=== PATIENT | female | born 1980 | race Caucasian/White ===

== ENCOUNTER → 2019-05-08 15:50 | Outpatient (CLI) | payer BC, SELFPAY ==
[2019-05-08 19:33] LABS: Hemoglobin A1C 9.3 % (0.0-7.0)
[2019-05-08 23:43] LABS: Alanine Aminotransferase 29 U/L (12-78); Albumin Level 4.2 gm/dL (3.4-5.0); Albumin/Globulin Ratio 1.3 (1.1-1.8); Alkaline Phosphatase 82 U/L (46-116); Anion Gap 19.8 mEq/L (5-15); Aspartate Amino Transferase 17 U/L (15-37); Bilirubin,Total 0.6 mg/dL (0.2-1.0); Blood Urea Nitrogen 6 mg/dL (7-18); Calcium 8.6 mg/dL (8.5-10.1); Carbon Dioxide 24 mmol/L (21.0-32.0); Chloride 98 mmol/L (98-107); Chol/HDL Ratio 5.5 (1-3.5); Cholesterol 238 mg/dL (140-200); Creatinine,Serum 0.57 mg/dL (0.55-1.02); Estimated Glomerular Filt Rate 118 ml/min (>60); GFR (African American) 143 ML/MIN (>60); Globulin 3.3 gm/dl (1.3-3.2); Glucose 321 mg/dL (74-106); HDL Cholesterol 43 mg/dL (29-89); LDL Cholesterol 123 mg/dL (0-130); Potassium 3.8 mmoL/L (3.5-5.1); Sodium 138 mmol/L (136-145); Total Protein,Serum 7.5 gm/dL (6.4-8.2); Triglycerides 362 mg/dL (30-200); VLDL Cholesterol 72 mg/dL (0-40)
== END ==
PROVIDERS: Visit Provider Nurse Practitioner Family
DX: Z00.00 Encounter for general adult medical examination without abnormal findings (principal); E11.9 Type 2 diabetes mellitus without complications; Z79.4 Long term (current) use of insulin; Z79.84 Long term (current) use of oral hypoglycemic drugs
CPT/HCPCS: 36415; 80053; 80061; 83036

== ENCOUNTER 2020-01-13 17:46 | Emergency (ER) | payer BC, SELFPAY ==
[2020-01-13 17:46] VITALS: BP 151/90; PULSE 98; RESP 20; TEMP 37.2; O2SAT 99; BMI 24.0
--- NOTE | 2020-01-13 18:05 | XR_ITS ---
PROCEDURE: XR CHEST 2V CLINICAL HISTORY: COUGH Smoker with cough and congestion COMPARISON: CXR CHEST(2 VIEWS-NOT PORTABLE) from 06/15/2017 FINDINGS: The cardiomediastinal silhouette and pulmonary vascularity are within normal limits. No lobar consolidation or collapse. There is some mild coarsening of the bronchovascular markings No acute bony abnormalities. IMPRESSION: Coarsened bronchovascular markings which may be seen with chronic bronchitis/smoking related lung disease otherwise negative Dictated by: Erick Cleaning MD 01/13/2020 19:19 Electronically signed by Eirck Cleaning MD in [place] 01/13/2020 19:19
--- NOTE | 2020-01-13 18:46 | HMH.EDUTC ---
[facility] [place] Clinical Impression: Left lower lobe pneumonia Qualifiers: Pneumonia type: due to unspecified organism Qualified Code(s): J18.9 - Pneumonia, unspecified organism Disposition: Home, Self-Care Condition on Discharge: Good Instructions: Pneumonia-Adult, DI for Pneumonia -- Adult Additional Instructions: Drink plenty of fluids. Take tylenol or ibuprofen for pain or fever. Take the medications as directed. Follow up with your regular doctor. GO TO THE ER FOR ANY WORSENING SYMPTOMS Prescriptions: Albuterol Sulfate [Albuterol Sulfate Hfa] 2 puffs IH Q6H #1 hfa.aer.ad Transmission Status: Received by [facility] predniSONE [Prednisone 20mg Tab] 20 mg PO BID 3 Days #6 tab Transmission Status: Received by [facility] Benzonatate [Tessalon Perle 100mg Cap] 100 mg PO TIDP PRN #30 cap PRN Reason: Cough Transmission Status: Received by [facility] Azithromycin [Z-Noah 250mg Tab*] 250 mg PO UD DOSE PK #6 tab Transmission Status: Received by [facility] Referrals: Adrian Quinonez MD [Primary Care Provider] - Forms: Work/School Release Time of Disposition: 18:51 Medical Decision Making - Medical Records Medical records reviewed: No: I reviewed the patient's medical records. - Chema Inquiry Pt receiving controlled substance: No Vital Signs: 01/13/20 17:46 01/13/20 18:59 Temperature 98.9 F 98.9 F Temperature Source Oral Oral Pulse Rate 98 H Pulse Rate [Radial] 98 H Respiratory Rate 20 20 Blood Pressure 151/90 H Blood Pressure [Right Arm] 151/90 H Blood Pressure Mean [Right Arm] 110 Blood Pressure Source Automatic Cuff Blood Pressure Source [Right Arm] Automatic Cuff Blood Pressure Position Sitting Blood Pressure Position [Right Arm] Sitting 02 Sat by Pulse Oximetry 99 Oxygen Delivery Method Room Air Room Air Orders (Tests/Meds): ED MEDICATIONS Discontinued Medications Generic Name Dose Route Start Last Admin Trade Name Freq PRN Reason Stop Dose Admin Ceftriaxone Sodium 1 gm 01/13/20 18:43 01/13/20 18:50 Rocephin 1gm Vial IM 01/13/20 18:44 1 gm ONCE ONE Administration Protocol Lidocaine HCl 0 ml 01/13/20 18:43 01/13/20 18:51 Lidocaine 1% 10ml Mdv IM 01/13/20 18:44 2.1 ml ONCE ONE Administration ORDERS Category Date Time Status SARS-CoV-2, ANDREE Stat Lab 01/13/20 18:20 Received - Radiology Data #1 Image(s): Chest Image Reviewed: Yes I reviewed the patient's radiology image Preliminary Findings: Abnormal PROCEDURE: XR CHEST 2V CLINICAL HISTORY: COUGH Smoker with cough and congestion COMPARISON: CXR CHEST(2 VIEWS-NOT PORTABLE) from 06/15/2017 FINDINGS: The cardiomediastinal silhouette and pulmonary vascularity are within normal limits. No lobar consolidation or collapse. There is some mild coarsening of the bronchovascular markings No acute bony abnormalities. IMPRESSION: Coarsened bronchovascular markings which may be seen with chronic bronchitis/smoking related lung disease otherwise negative Dictated by: Erick Cleaning MD 01/13/2020 19:19 Electronically signed by Erick Cleaning MD in [place] 01/13/2020 19:19 [facility] [place] - General Stated complaint: cough Time Seen by Provider: 01/13/20 17:50 Mode of Arrival: Ambulatory Source of Information: Patient Limitations: No Limitations Description of Symptoms (Recalled from Triage Doc. by RN): bad cough and ears hurt HEENT Symptoms (Recalled from RN notes): Yes Resp Symptoms (Recalled from RN notes): Yes Skin Symptoms (Recalled from RN notes): No MS Symptoms (Recalled from RN notes): No Functional Status (Recalled from RN notes): wnl - History of Present Illness Provider Complaint: She c/o cough and congestion for the past 4 days. She denies any documented fever, but she has had some chilling at times. - Related Data Home Medications Medication Instructions Recorded Confirmed metformin 50
[2020-01-13 18:59] VITALS: BP 151/90; PULSE 98; RESP 20; TEMP 37.2; O2SAT 99
[2020-01-16 07:07] LABS: Covid-19 Nasal PCR Sendout Lex NOT DETECTED
== END 2020-01-13 19:00 | disposition home or self-care (01) ==
PROVIDERS: Emergency Provider Nurse Practitioner Family; PCP Internal Medicine Adolescent Medicine
DX: J18.9 Pneumonia, unspecified organism (principal); E11.9 Type 2 diabetes mellitus without complications; F17.210 Nicotine dependence, cigarettes, uncomplicated; Z79.84 Long term (current) use of oral hypoglycemic drugs; Z79.4 Long term (current) use of insulin; Z88.0 Allergy status to penicillin; Z90.79 Acquired absence of other genital organ(s)
CPT/HCPCS: 71046; 96372; 99202; U0004

== ENCOUNTER 2020-06-18 17:48 | Emergency (ER) | payer BC, SELFPAY ==
[2020-06-18 18:10] VITALS: BP 134/83; PULSE 91; RESP 14; TEMP 37; O2SAT 97; BMI 22.4
--- NOTE | 2020-06-18 18:39 | HMH.EDUTC ---
[facility] [place] Clinical Impression: Exposure to COVID-19 virus Disposition: Home, Self-Care Condition on Discharge: Good Instructions: Preventing the Spread of Coronavirus Discharge Instructions Additional Instructions: Drink plenty of fluids. Take tylenol for pain or fever. Follow up with your regular doctor. GO TO THE ER FOR ANY WORSENING SYMPTOMS Referrals: Adrian Quinonez MD [Primary Care Provider] - Time of Disposition: 18:40 Medical Decision Making - Medical Records Medical records reviewed: No: I reviewed the patient's medical records. - Chema Inquiry Pt receiving controlled substance: No Vital Signs: 06/18/20 18:10 06/18/20 18:46 Temperature 98.6 F 98.6 F Temperature Source Oral Pulse Rate 91 H Pulse Rate [Right Brachial] 91 H Respiratory Rate 14 14 Blood Pressure 134/83 Blood Pressure [Right Arm] 134/83 Blood Pressure Mean [Right Arm] 100 Blood Pressure Source [Right Arm] Automatic Cuff Blood Pressure Position [Right Arm] Sitting 02 Sat by Pulse Oximetry 97 Oxygen Delivery Method Room Air Orders (Tests/Meds): ORDERS Category Date Time Status Covid-19 Nasal PCR Sendout Luis Routine Lab 06/18/20 18:00 Received [facility] [place]PI - General Stated complaint: covid exposure Time Seen by Provider: 06/18/20 18:25 Mode of Arrival: Ambulatory Source of Information: Patient Limitations: No Limitations Description of Symptoms (Recalled from Triage Doc. by RN): PATIENT REQUESTING COVID TEST D/T EXPOSURE; DENIES SYMPTOMS HEENT Symptoms (Recalled from RN notes): No Resp Symptoms (Recalled from RN notes): No Skin Symptoms (Recalled from RN notes): No MS Symptoms (Recalled from RN notes): No Functional Status (Recalled from RN notes): WNL - History of Present Illness Provider Complaint: She has been exposed to covid by a coworker. She denies any symptoms except having a head ache. - Related Data Home Medications Medication Instructions Recorded Confirmed metformin 500 mg tablet,extended PO 30 Days #120 01/23/18 04/15/19 release 24 hr insulin glargine 100 unit/mL 10 unit SQ DAILY 05/11/18 04/15/19 subcutaneous solution Previous Rx's Medication Instructions Recorded azithromycin 250 mg tablet 250 mg PO QDAY 5 Days #6 tab 04/15/19 Albuterol Sulfate [Albuterol 2 puffs IH Q6H #1 hfa.aer.ad 01/13/20 Sulfate Hfa] Azithromycin [Z-Noah 250mg Tab*] 250 mg PO UD DOSE PK #6 tab 01/13/20 Benzonatate [Tessalon Perle 100mg 100 mg PO TIDP PRN #30 cap 01/13/20 Cap] predniSONE [Prednisone 20mg 20 mg PO BID 3 Days #6 tab 01/13/20 Tab] Allergies Allergy/AdvReac Type Severity Reaction Status Date / Time Penicillins [PENICILLINS] Allergy Unknown Verified 04/15/19 17:57 - Worker's Comp Is this a Worker's Comp case?: No [facility] History - Hepatitis A Screen Drug use history?: No High risk sexual behaviors?: No History of sexually transmitted infection?: No Currently employed?: No Childcare worker?: No Do you have indoor plumbing?: Yes Do you have electricity?: Yes Attestation statement:: This patient has been screened for Hepatitis A risk factors. I have reviewed the patient's past medical history: Yes Medical History: Reports:: Cancer, Diabetes Mellitus Type 2 Other Surgeries: Yes: No Previous Surgery, Cancer Surgery, Hysterectomy-Total Amputation: No Fractures: No - Social History Smoking Status: Current every day smoker Tobacco Type: cigarettes # Packs/Day (cigarettes): 1 Alcohol Intake: never Alcohol Intake Frequency:: holidays/special occasions only Substance Use Type: denies use Occupational Status: other Housing: house Household Members: family Family Hx:: Heart Attack, Diabetes ROS Obtained: Yes All systems reviewed & no additional complaints - Constitutional Constitutional: Reports system reviewed and no additional complaints, except as docu - Eyes Eyes: Reports system reviewed and no additional complaints, except as docu -
[2020-06-18 18:46] VITALS: BP 134/83; PULSE 91; RESP 14; TEMP 37; O2SAT 97
[2020-06-20 14:41] LABS: Covid-19 Nasal PCR Sendout Lex NOT DETECTED
== END 2020-06-18 18:48 | disposition home or self-care (01) ==
PROVIDERS: Emergency Provider Nurse Practitioner Family; PCP Internal Medicine Adolescent Medicine
DX: Z20.828 Contact with and (suspected) exposure to other viral communicable diseases (principal); E11.9 Type 2 diabetes mellitus without complications; Z88.0 Allergy status to penicillin
CPT/HCPCS: 99201; U0004

== ENCOUNTER → 2020-07-18 07:32 | Outpatient (CLI) | payer BC, SELFPAY ==
[2020-07-18 08:01] LABS: Basophils # 0.2 K/mm3 (0-0.2); Basophils % 2.5 % (0.1-2.0); Eosinophils # 0.3 K/mm3 (0.0-0.4); Eosinophils % 4.3 % (0.1-12.0); Hematocrit 56.8 % (37.0-47.0); Lymphocytes # 2.8 K/mm3 (0.7-4.5); Lymphocytes % 38.7 % (10-50); Mean Corpuscular HGB Conc 35.1 g/dL (31.8-35.4); Mean Corpuscular Hemoglobin 30.5 pg (27.0-31.2); Mean Corpuscular Volume 86.7 fl (81-99); Mean Platelet Volume 8.6 fl (7.4-10.4); Monocytes # 0.6 K/mm3 (0.1-1.0); Monocytes % 8.6 % (1.7-9.3); Neutrophils # 3.3 K/mm3 (1.8-7.8); Neutrophils % 45.9 % (37.0-80.0); Platelet Count 319 K/mm3 (142-424); Red Blood Count 6.55 M/mm3 (4.20-5.40); Red Cell Distribution Width 13.3 % (11.5-17.5); White Blood Count 7.3 K/mm3 (4.8-10.8)
[2020-07-18 08:08] LABS: Microalbumin/Creatinine Ratio 27.1
[2020-07-18 08:47] LABS: Creatinine,Urine Random 184 mg/dL (Not Estab.)
[2020-07-18 09:38] LABS: Hemoglobin 19.9 g/dL (12.2-16.2)
[2020-07-18 09:42] LABS: Hemoglobin A1C 10.6 % (4.0-6.0)
[2020-07-18 10:02] LABS: Alanine Aminotransferase 20 U/L (12-78); Albumin/Globulin Ratio 1.6 (1.1-1.8); Alkaline Phosphatase 99 U/L (38-126); Anion Gap 15.2 mEq/L (5-15); Aspartate Amino Transferase 28 U/L (14-36); Bilirubin,Total 0.7 mg/dl (0.2-1.3); Blood Urea Nitrogen 10 mg/dl (7-17); Calcium 10.1 mg/dl (8.4-10.2); Carbon Dioxide 30 mmol/L (22.0-30.0); Chloride 98 mmol/L (98-107); Chol/HDL Ratio 4.6 (1-3.5); Cholesterol 272 mg/dl (140-200); Estimated Glomerular Filt Rate 111 ml/min (>60); GFR (African American) 134 ML/MIN (>60); Globulin 3.1 g/dL (1.3-3.2); Glucose 303 mg/dl (74-100); HDL Cholesterol 59 mg/dl (40-60); Potassium 4.2 mmoL/L (3.5-5.1); Sodium 139 mmol/L (136-145); Total Protein,Serum 8.1 g/dl (6.3-8.2); Triglycerides 181 mg/dl (30-150); VLDL Cholesterol 36 mg/dL (0-40)
[2020-07-18 10:13] LABS: Direct LDL Cholesterol 166.97 mg/dL (100-129)
[2020-07-18 10:51] LABS: Vitamin B12 504 pg/mL (239-931)
== END ==
PROVIDERS: Visit Provider Nurse Practitioner Family
DX: E11.8 Type 2 diabetes mellitus with unspecified complications (principal); R20.2 Paresthesia of skin; E55.9 Vitamin D deficiency, unspecified; Z79.4 Long term (current) use of insulin
CPT/HCPCS: 36415; 80053; 80061; 82043; 82306; 82570; 82607; 83036; 84443; 85025

== ENCOUNTER → 2020-11-16 17:22 | Outpatient (CLI) | payer BC, SELFPAY ==
--- NOTE | 2020-11-16 17:41 | XR_ITS ---
PROCEDURE: XR RIBS RT MIN 3V W CXR1V CLINICAL INDICATION: RIGHT SIDED CHEST WALL PAIN COMPARISON: CR CXR CHEST(2 VIEWS-NOT PORTABLE) from 06/15/2017 CR XR CHEST 2V from 01/13/2020 FINDINGS: There is minimal lateral angulation the lateral aspect of the right 4th rib. No displaced fractures are evident. Frontal view of the chest shows no acute finding. IMPRESSION: Minimal angulation of the right 4th rib laterally. This is nonspecific and could be related to a nondisplaced fracture either old or acute. No displaced rib fractures are evident. Dictated by: Erick Cleaning MD 11/17/2020 05:13 Erick Cleaning MD in [place] 11/17/2020 05:13
--- NOTE | 2020-11-16 17:41 | XR_ITS ---
PROCEDURE: XR CHEST 2V CLINICAL HISTORY: SHORTNESS OF BREATH Cough, right-sided chest COMPARISON: CR CXR CHEST(2 VIEWS-NOT PORTABLE) from 06/15/2017 CR XR CHEST 2V from 01/13/2020 CR XR RIBS RT MIN 3V W CXR1V from 11/16/2020 FINDINGS: The cardiomediastinal silhouette and pulmonary vascularity are within normal limits. The lungs are clear without infiltrates, suspicious nodules, or pleural effusions. No acute bony abnormalities. IMPRESSION: No acute findings. Dictated by: Erick Cleaning MD 11/17/2020 05:10 Erick Cleaning MD in [place] 11/17/2020 05:10
[2020-11-16 18:08] LABS: Basophils # 0.1 K/mm3 (0-0.2); Basophils % 1.3 % (0.1-2.0); Eosinophils # 0.2 K/mm3 (0.0-0.4); Eosinophils % 2.3 % (0.1-12.0); Hematocrit 46.6 % (37.0-47.0); Hemoglobin 16.1 g/dL (12.2-16.2); Lymphocytes % 31.7 % (10-50); Mean Corpuscular HGB Conc 34.5 g/dL (31.8-35.4); Mean Corpuscular Hemoglobin 30.2 pg (27.0-31.2); Mean Corpuscular Volume 87.4 fl (81-99); Mean Platelet Volume 8.3 fl (7.4-10.4); Monocytes # 0.9 K/mm3 (0.1-1.0); Monocytes % 9.1 % (1.7-9.3); Neutrophils # 5.2 K/mm3 (1.8-7.8); Neutrophils % 55.6 % (37.0-80.0); Platelet Count 232 K/mm3 (142-424); Red Blood Count 5.34 M/mm3 (4.20-5.40); White Blood Count 9.4 K/mm3 (4.8-10.8)
[2020-11-16 18:25] LABS: D-Dimer 0.53 ug/mL (0.0-0.5)
[2020-11-16 18:40] LABS: Alanine Aminotransferase 20 U/L (12-78); Albumin Level 4.6 g/dl (3.5-5.0); Albumin/Globulin Ratio 1.8 (1.1-1.8); Alkaline Phosphatase 75 U/L (38-126); Anion Gap 12.4 mEq/L (5-15); Aspartate Amino Transferase 22 U/L (14-36); Bilirubin,Total 0.7 mg/dl (0.2-1.3); Blood Urea Nitrogen 12 mg/dl (7-17); Calcium 9.5 mg/dl (8.4-10.2); Carbon Dioxide 32 mmol/L (22.0-30.0); Chloride 100 mmol/L (98-107); Estimated Glomerular Filt Rate 110 ml/min (>60); GFR (African American) 133 ML/MIN (>60); Globulin 2.5 g/dL (1.3-3.2); Glucose 239 mg/dl (74-100); Potassium 4.4 mmoL/L (3.5-5.1); Sodium 140 mmol/L (136-145); Total Protein,Serum 7.1 g/dl (6.3-8.2); Uric Acid 3.5 mg/dl (2.5-6.2)
[2020-11-16 19:34] LABS: Erythrocyte Sedimentation Rate 13 mm/hr (0-20)
== END ==
PROVIDERS: Visit Provider Nurse Practitioner Family
DX: R07.89 Other chest pain (principal); R06.02 Shortness of breath; R05 Cough; M25.471 Effusion, right ankle
CPT/HCPCS: 36415; 71046; 71101; 80053; 84550; 85025; 85378; 85651

== ENCOUNTER → 2020-12-29 17:41 | Outpatient (CLI) | payer BC, SELFPAY ==
--- NOTE | 2020-12-29 17:58 | XR_ITS ---
PROCEDURE: XR ANKLE WT BEARING RT MIN 3V CLINICAL INDICATION: pain COMPARISON: No exams were available for comparison FINDINGS: Bones: No fracture or dislocation. No lytic or blastic change. There is normal mineralization. Joints: The joint spaces are well-preserved. No significant degenerative/arthritic changes. No erosive changes evident. Other findings:There is focal soft tissue swelling at the lateral malleolar region. A faint 2 mm opacity is present at this area within the soft tissues laterally in the subcutaneous or cutaneous region. IMPRESSION: Small foreign body with focal soft tissue swelling at the lateral malleolar region either upon the skin or in the subcutaneous area otherwise negative Dictated by: Erick Cleaning MD 12/30/2020 07:40 Erick Cleaning MD in [place] 12/30/2020 07:40
--- NOTE | 2020-12-29 17:58 | XR_ITS ---
PROCEDURE: XR FOOT WT BEARING RT 3V CLINICAL INDICATION: pain COMPARISON: No exams were available for comparison FINDINGS: No fracture or dislocation. No lytic or blastic change. There is normal mineralization. The joint spaces are well-preserved. No significant degenerative/arthritic changes. No erosive changes evident. Other findings:Borderline pes planus. Small calcaneal spur IMPRESSION: Borderline pes planus otherwise negative Dictated by: Erick Cleaning MD 12/30/2020 07:42 Erick Cleaning MD in [place] 12/30/2020 07:42
--- NOTE | 2020-12-29 17:58 | XR_ITS ---
PROCEDURE: XR ANKLE WT BEARING LT MIN 3V CLINICAL INDICATION: pain COMPARISON: No exams were available for comparison FINDINGS: Bones: No fracture or dislocation. No lytic or blastic change. There is normal mineralization. Joints: The joint spaces are well-preserved. No significant degenerative/arthritic changes. No erosive changes evident. Other findings:There are 3 small calcific densities in the pretibial region distally consistent with phleboliths. IMPRESSION: No acute findings. Dictated by: Erick Cleaning MD 12/30/2020 07:41 Erick Cleaning MD in [place] 12/30/2020 07:41
--- NOTE | 2020-12-29 17:58 | XR_ITS ---
PROCEDURE: XR FOOT WT BEARING LT 3V CLINICAL INDICATION: pain COMPARISON: No exams were available for comparison FINDINGS: No fracture or dislocation. No lytic or blastic change. There is normal mineralization. The joint spaces are well-preserved. No significant degenerative/arthritic changes. No erosive changes evident. Other findings:Mild pes planus. Small calcaneal spur IMPRESSION: Mild pes planus otherwise negative Dictated by: Erick Cleaning MD 12/30/2020 07:38 Erick Cleaning MD in [place] 12/30/2020 07:38
== END ==
PROVIDERS: PCP Internal Medicine Adolescent Medicine; Visit Provider Nurse Practitioner
DX: E11.9 Type 2 diabetes mellitus without complications (principal); M25.572 Pain in left ankle and joints of left foot; M25.571 Pain in right ankle and joints of right foot; M25.473 Effusion, unspecified ankle; Z79.84 Long term (current) use of oral hypoglycemic drugs
CPT/HCPCS: 73610; 73630

== ENCOUNTER → 2021-01-26 15:34 | Outpatient (CLI) | payer BC, SELFPAY ==
--- NOTE | 2021-01-26 15:34 | US_ITS ---
PROCEDURE: US EXTREMITY RT LIMITED CLINICAL INDICATION: foreign body of lateral ankle, pain COMPARISON: No exams were available for comparison FINDINGS: Ultrasound is performed over an area of soft tissue swelling in the lateral aspect the ankle. There is focal soft tissue swelling with irregular areas of decreased echogenicity within the subcutaneous area of the right lateral ankle. This area measures 2.6 cm cephalad caudad, 2.6 cm transverse and is approximately 5 mm in thickness. There is fluid echogenicity in this region suggesting that this could be due to a developing abscess or focal phlegmonous changes. There was a persistent small 2.5 mm hyperechoic linear opacity in the immediate subcutaneous tissues superficial to the fluid collection possibly due to small foreign body such is a small splinter. IMPRESSION: Focal soft tissue swelling in the lateral right ankle demonstrates heterogeneous echogenicity with some fluid echogenicity and may be due to developing abscess or phlegmonous change with possible small foreign body in the immediate subcutaneous tissues. The heterogeneous area of echogenicity in the subcutaneous tissue could also be due to a hematoma or a complex bursa. Dictated by: Erick Cleaning MD 01/26/2021 16:24 Erick Cleaning MD in [place] 01/26/2021 16:24
== END ==
PROVIDERS: PCP Internal Medicine Adolescent Medicine; Visit Provider Podiatrist
DX: M25.571 Pain in right ankle and joints of right foot (principal); M79.5 Residual foreign body in soft tissue; R60.0 Localized edema
CPT/HCPCS: 76882

== ENCOUNTER → 2021-05-01 09:13 | Outpatient (CLI) | payer BC, SELFPAY ==
[2021-05-01 10:12] LABS: Alanine Aminotransferase 31 U/L (12-78); Albumin Level 4.1 g/dl (3.5-5.0); Albumin/Globulin Ratio 1.6 (1.1-1.8); Alkaline Phosphatase 65 U/L (38-126); Anion Gap 13.4 mEq/L (5-15); Aspartate Amino Transferase 32 U/L (14-36); Bilirubin,Total 0.6 mg/dl (0.2-1.3); Blood Urea Nitrogen 11 mg/dl (7-17); Calcium 9.9 mg/dl (8.4-10.2); Carbon Dioxide 29 mmol/L (22.0-30.0); Chloride 103 mmol/L (98-107); Chol/HDL Ratio 2.8 (1-3.5); Cholesterol 147 mg/dl (140-200); Estimated Glomerular Filt Rate 136 ml/min (>60); GFR (African American) 165 ML/MIN (>60); Globulin 2.6 g/dL (1.3-3.2); Glucose 168 mg/dl (74-100); HDL Cholesterol 53 mg/dl (40-60); Potassium 4.4 mmoL/L (3.5-5.1); Sodium 141 mmol/L (136-145); Total Protein,Serum 6.7 g/dl (6.3-8.2); Triglycerides 98 mg/dl (30-150); VLDL Cholesterol 20 mg/dL (0-40)
[2021-05-01 10:23] LABS: Direct LDL Cholesterol 75.14 mg/dL (100-129)
[2021-05-01 10:25] LABS: Hemoglobin A1C 9.6 % (4.0-6.0)
[2021-05-01 10:29] LABS: 25-OH Vitamin D, Total 39.1 ng/mL (30-100)
== END ==
PROVIDERS: Visit Provider Nurse Practitioner Family
DX: E11.8 Type 2 diabetes mellitus with unspecified complications (principal); E78.2 Mixed hyperlipidemia; E55.9 Vitamin D deficiency, unspecified; Z79.4 Long term (current) use of insulin
CPT/HCPCS: 36415; 80053; 80061; 82306; 83036

== ENCOUNTER 2021-07-27 09:02 | Emergency (ER) | payer BC, SELFPAY ==
[2021-07-27 09:05] VITALS: BP 104/74; PULSE 115; RESP 20; TEMP 36.9; O2SAT 98; BMI 24.1
--- NOTE | 2021-07-27 09:31 | HMH.EDUTC ---
[facility] [place] Clinical Impression: URI (upper respiratory infection) Qualifiers: URI type: unspecified URI Qualified Code(s): J06.9 - Acute upper respiratory infection, unspecified Disposition: Home, Self-Care Condition on Discharge: Good Instructions: Azithromycin, DI for COVID-19 (Suspected or Confirmed ), Preventing the Spread of Coronavirus Discharge Instructions Additional Instructions: *Monitor Temp, Over the counter Motrin or Tylenol as directed/as needed Tylenol every 4 hours and Motrin every 6 hours (as long as your family doctor has told you that you can take it) for fever or pain. and straight to ER if unable to lower temp less than 101.0 after medication given *Warm salt water gargles may help to soothe the throat *Throat Lozenges *Warm fluids like tea with honey may help to soothe the throat *Sleep elevated *Humidifier/Vaporizer *Flonase 2 sprays in each nostril daily but be aware that it may take 2-3 days before you notice improvement Follow up IMMEDIATELY for new or worsening symptoms or no Noticeable improvement over the next 48-72 hours. 911 for difficulty breathing or swallowing You were tested for today for COVID19 your test result should be back in the next 24-48 hours, you may check your COVID test results on the [facility] My Health Portal if you have trouble logging on you may call You was given a handout with instructions for Self Quarantine and Self isolation for while you wait on test results and what to do if they are positive If you are positive the Health Dept will be contacting you also Make sure to take your Vitamins Vit. C Vit D and Zinc if you can take them Prescriptions: Fluticasone Propionate [Flonase 50mcg nasal spray 16gm] 1 spr NS DAILY #1 each Transmission Status: Received by [facility] Azithromycin [Z-Noah 250mg Tab] 250 mg PO DIRECTED #6 tab Transmission Status: Received by [id number] Referrals: Adrian Quinonez MD [Primary Care Provider] - As needed Time of Disposition: 09:46 Medical Decision Making - Chema Inquiry Pt receiving controlled substance: No Chema was queried for this patient: No Vital Signs: 07/27/21 09:05 07/27/21 09:56 Temperature 98.5 F 98.5 F Temperature Source Oral Pulse Rate 115 H Pulse Rate [Right Brachial] 115 H Respiratory Rate 20 20 Blood Pressure 104/74 L Blood Pressure [Right Arm] 104/74 L Blood Pressure Mean [Right Arm] 84 Blood Pressure Source [Right Arm] Automatic Cuff Blood Pressure Position [Right Arm] Sitting 02 Sat by Pulse Oximetry 98 Oxygen Delivery Method Room Air Orders (Tests/Meds): ED MEDICATIONS Discontinued Medications Generic Name Dose Route Start Last Admin Trade Name Freq PRN Reason Stop Dose Admin Methylprednisolone Sodium Succinate 125 mg 07/27/21 09:48 07/27/21 09:54 Methylprednisolone Sod Succ 125mg Vial IM 07/27/21 09:49 125 mg ONCE ONE Administration [facility] [place] HPI - General Stated complaint: covid exposure, covid symptoms Time Seen by Provider: 07/27/21 09:31 Mode of Arrival: Ambulatory Source of Information: Patient Limitations: No Limitations Description of Symptoms (Recalled from Triage Doc. by RN): PATIENT C/O CONGESTION AND A HEAD COLD X 3 DAYS. TESTED POSITIVE AT WORK YESTERDAY HEENT Symptoms (Recalled from RN notes): Yes Resp Symptoms (Recalled from RN notes): No Skin Symptoms (Recalled from RN notes): No MS Symptoms (Recalled from RN notes): No Functional Status (Recalled from RN notes): WNL - History of Present Illness Provider Complaint: Patient states that she has been having sinus pain and pressure State that her tested positive for COVID yesterday States that she has been blowing yellowish green mucous from her nose and today the pressure in her sinuses was worse so she came in to get checked out - Related Data Home Medications Medication Instructions Recorded Confirmed metformin 500 mg tablet,extended 500 mg PO TID 30
[2021-07-27 09:56] VITALS: BP 104/74; PULSE 115; RESP 20; TEMP 36.9; O2SAT 98
== END 2021-07-27 10:10 | disposition home or self-care (01) ==
PROVIDERS: Emergency Provider Nurse Practitioner; PCP Internal Medicine Adolescent Medicine
DX: J06.9 Acute upper respiratory infection, unspecified (principal); Z20.822 Contact with and (suspected) exposure to COVID-19; E11.9 Type 2 diabetes mellitus without complications; F17.210 Nicotine dependence, cigarettes, uncomplicated
CPT/HCPCS: 96372; 99202; C9803; G0463; U0003; U0005

== ENCOUNTER 2021-08-02 07:51 | Outpatient (CLI) | payer BC, SELFPAY ==
[2021-08-02] VITALS (10 sets, daily range): BP systolic 98–126; BP diastolic 60–78; PULSE 56–78; RESP 18; TEMP 36.3–36.8; O2SAT 94–99
== END 2021-08-02 11:30 | disposition home or self-care (01) ==
LOC: COVID.OUT 07:52
PROVIDERS: PCP Internal Medicine Adolescent Medicine; Visit Provider Internal Medicine Adolescent Medicine
DX: U07.1 COVID-19 (principal); Z23 Encounter for immunization
CPT/HCPCS: 96365

== ENCOUNTER 2022-02-26 18:01 | Emergency (ER) | payer BC, SELFPAY ==
[2022-02-26 19:10] VITALS: BP 150/95; PULSE 97; RESP 18; TEMP 37.2; O2SAT 97; BMI 21.6
--- NOTE | 2022-02-26 19:18 | HMH.EDUTC ---
[facility] [place] Clinical Impression: Enlarged lymph node in neck, Strep sore throat Otitis media Qualifiers: Otitis media type: suppurative Chronicity: acute Laterality: left Recurrence: non-recurrent Spontaneous tympanic membrane rupture: without spontaneous rupture Qualified Code(s): H66.002 - Acute suppurative otitis media without spontaneous rupture of ear drum, left ear Disposition: Home, Self-Care Condition on Discharge: Good Instructions: DI for Strep Throat, Middle Ear Infection Additional Instructions: Start antibiotics today be sure to take it as ordered with the full length of time although you should start feeling better in 24-48 hours. Change toothbrush and toothpaste 24-48 hours after starting antibiotics Tylenol or Motrin as needed for fever or pain Encourage fluids, water, Gatorade, Powerade, try cold fluids, popsicles, ice cream will make it feel better You are contagious for 24 hours. Avoid kissing anyone, no eating or drinking after anyone. You are contagious. Follow-up the ER for new or worsening symptoms or no noticeable improvement over the next 24-48 hours. Follow-up with PCP this week. stop clindamycin Prescriptions: Azithromycin [Zithromax 250mg tab] 250 mg PO DIRECTED #6 tab Transmission Status: Pending to [facility] Referrals: Adrian Quinonez MD [Primary Care Provider] - Time of Disposition: 19:43 Medical Decision Making - Chema Inquiry Pt receiving controlled substance: No Vital Signs: 02/26/22 19:10 Temperature 98.9 F Temperature Source Oral Pulse Rate [Right Brachial] 97 H Respiratory Rate 18 Blood Pressure [Right Arm] 150/95 H Blood Pressure Mean [Right Arm] 113 Blood Pressure Source [Right Arm] Automatic Cuff Blood Pressure Position [Right Arm] Sitting 02 Sat by Pulse Oximetry 97 Oxygen Delivery Method Room Air [facility] [place] HPI - General Chief complaint: Urgent Treatment Center Stated complaint: diag ear inf 02/25, sore throat Time Seen by Provider: 02/26/22 19:18 Mode of Arrival: Ambulatory Source of Information: Patient Limitations: No Limitations Description of Symptoms (Recalled from Triage Doc. by RN): PATIENT C/O SWELLING TO NECK. SHE WAS SEEN IN A [facility] IN [place] YESTERDAY AND WAS TOLD TO GET CHECKED OUT IF SWELLING DID NOT GO DOWN HEENT Symptoms (Recalled from RN notes): Yes Resp Symptoms (Recalled from RN notes): No Skin Symptoms (Recalled from RN notes): No MS Symptoms (Recalled from RN notes): No Functional Status (Recalled from RN notes): WNL - History of Present Illness Provider Complaint: 41 yr old female presents for rt ear pain and enlarged lymph nodes. pt states she was seen in [place] yesterday and checked for strep,covid,mono,flu and all were neg. pt states was placed on clindamycin and today there is no improvement. no trouble swallowing or breathing just sore glands - Related Data Home Medications Medication Instructions Recorded Confirmed metformin 500 mg tablet,extended 500 mg PO TID 30 Days #120 01/23/18 07/27/21 release 24 hr Empagliflozin [Jardiance] 10 mg PO DAILY 07/27/21 07/27/21 Gabapentin [Neurontin 300mg 300 mg PO TID 07/27/21 07/27/21 capsule] Insulin Glargine,Hum.rec.anlog 36 units SQ DAILY 07/27/21 07/27/21 [Clover Liu] Previous Rx's Medication Instructions Recorded Azithromycin [Z-Noah 250mg Tab] 250 mg PO DIRECTED #6 tab 07/27/21 Fluticasone Propionate [Flonase 1 spr NS DAILY #1 each 07/27/21 50mcg nasal spray 16gm] Azithromycin [Zithromax 250mg 250 mg PO DIRECTED #6 tab 02/26/22 tab] Allergies Allergy/AdvReac Type Severity Reaction Status Date / Time Penicillins [PENICILLINS] Allergy Unknown Verified 01/12/21 08:42 - Worker's Comp Is this a Worker's Comp case?: No [facility] History - Hepatitis A Screen Attestation statement:: This patient has been screened for Hepatitis A risk factors. I have reviewed the patient's past medical history: Yes
[2022-02-26 19:41] LABS: UTC Strep Screen (Rapid) Positive (Negative)
[2022-02-26 19:44] VITALS: BP 150/95; PULSE 97; RESP 18; TEMP 37.2; O2SAT 97
== END 2022-02-26 19:49 | disposition home or self-care (01) ==
PROVIDERS: Emergency Provider Nurse Practitioner Family; PCP Internal Medicine Adolescent Medicine
DX: H66.002 Acute suppurative otitis media without spontaneous rupture of ear drum, left ear (principal); Z72.0 Tobacco use; R59.0 Localized enlarged lymph nodes; J02.0 Streptococcal pharyngitis; H92.01 Otalgia, right ear; F13.10 Sedative, hypnotic or anxiolytic abuse, uncomplicated; E11.9 Type 2 diabetes mellitus without complications; Z79.84 Long term (current) use of oral hypoglycemic drugs
CPT/HCPCS: 87880; 99212; G0463

== ENCOUNTER 2022-06-03 14:40 | Emergency (ER) | payer BC, SELFPAY ==
[2022-06-03 14:55] VITALS: BP 146/83; PULSE 96; RESP 16; TEMP 36.8; O2SAT 98; BMI 22.4
--- NOTE | 2022-06-03 15:09 | EXP.UTC ---
Discharge Plan Disposition Patient Disposition: Home, Self-Care Condition: Good Prescriptions Prescriptions: No Action metformin 500 mg tablet extended release 24 hr 500 mg PO TID 30 Days Qty: 120 gabapentin 300 MG capsule 300 mg PO TID empagliflozin 10 MG tablet 10 mg PO DAILY insulin glargine U-300 conc 300 UNIT/ML insulin pen 36 units SQ DAILY azithromycin 250 MG tablet 250 mg PO DIRECTED Qty: 6 0RF Rx Instructions: Take two (2) tablets on day #1, then one (1) tablet day #2 thru #5 fluticasone propionate 120 SPR/BOT bottle 1 spr NS DAILY Qty: 1 0RF Rx Instructions: one spray in each nostril daily azithromycin 250 MG tablet 250 mg PO DIRECTED Qty: 6 0RF Rx Instructions: Take two (2) tablets on day #1, then one (1) tablet day #2 thru #5 Referrals Follow up/Referrals: Adrian Quinonez MD [Primary Care Provider] - See instructions Activity Restrictions/Add. Instructions Additional Instructions/Restrictions: Make sure to monitor your Finger sticks Monitor your Blood pressure and if you continue to have problems follow up with your Family Doctor Straight to ER if any life threatening symptoms Return if needed Clinical Impressions Clinical Impression: Facial flushing Discharge ED Provider: Keesha [place] [facility] [place] General Stated complaint: diabetic, high blood pressure Mode of Arrival: Ambulatory Source of Information: Patient and Parent(s) Time Seen by Provider: 06/03/22 15:09 Description of Symptoms (Recalled from Triage Doc. by RN): pt comes in with c/o possible blood pressure problems. pt is a known diabetic, pt states she does not have bp issues normally. she states that she just doesnt feel right . pt has flushed cheeks, hot spot in mouth, and red eyes. pt states symptoms began today while she was at work HEENT Symptoms (Recalled from RN notes): No Resp Symptoms (Recalled from RN notes): No Skin Symptoms (Recalled from RN notes): No MS Symptoms (Recalled from RN notes): No Functional Status (Recalled from RN notes): n/a History of Present Illness Provider Complaint: Patient states that she was at work and her checks felt flush and felt like she had hot spots' on her cheeks States that she was worried she may be starting to have blood pressure problems and wanted to come get her blood pressure checked out States that she isnt having any headache or blurry vision States that she is a Diabetic and took her insulin this morning and didnt check her FSBS states that she just felt a little off like she may be getting sick or something and was around someone in a meeting the other day that had a sick child so she wanted to get tested for COVID too States that she does normally take insulin at night but she fell asleep and took it this morning and felt like her face was flush and cheeks red but no fever Related Data Home Medications Medication Instructions Recorded Confirmed metformin 500 mg tablet,extended 500 mg PO TID Diabetes 30 days 01/23/18 06/03/22 release 24 hr ##120 empagliflozin 10 mg tablet 10 mg PO DAILY Diabetes 07/27/21 06/03/22 gabapentin 300 mg capsule 300 mg PO TID . 07/27/21 06/03/22 insulin glargine U-300 conc 300 36 units SQ DAILY Diabetes 07/27/21 06/03/22 unit/mL (3 mL) subcutaneous pen Previous Rx's Medication Instructions Recorded azithromycin 250 mg tablet 250 mg PO DIRECTED #6 tabs 07/27/21 fluticasone propionate 50 1 spr NS DAILY #1 ea 07/27/21 mcg/actuation nasal spray,suspension azithromycin 250 mg tablet 250 mg PO DIRECTED #6 tabs 02/26/22 Allergies Allergy/AdvReac Type Severity Reaction Status Date / Time Penicillins [PENICILLINS] Allergy Unknown Verified 06/03/22 14:59 Worker's Comp Is this a Worker's Comp case?: No PFSH PFSH Social History Smoking Status: Current every day smoker tobacco type: cigarettes packs per day: 1 second hand
[2022-06-03 15:48] VITALS: BP 146/83; PULSE 96; RESP 16; TEMP 36.8
== END 2022-06-03 15:48 | disposition home or self-care (01) ==
PROVIDERS: Emergency Provider Nurse Practitioner; PCP Internal Medicine Adolescent Medicine
DX: R23.2 Flushing (principal); Z79.84 Long term (current) use of oral hypoglycemic drugs; Z79.4 Long term (current) use of insulin; Z88.0 Allergy status to penicillin; E11.9 Type 2 diabetes mellitus without complications
CPT/HCPCS: 99212; C9803; G0463; U0003; U0005

== ENCOUNTER → 2022-10-15 08:35 | Outpatient (CLI) | payer BC, SELFPAY ==
[2022-10-15 09:10] LABS: Basophils # 0.2 K/mm3 (0-0.2); Eosinophils # 0.3 K/mm3 (0.0-0.4); Monocytes # 0.6 K/mm3 (0.1-1.0)
[2022-10-15 09:15] LABS: Basophils % 3.1 % (0.1-2.0); Eosinophils % 3.9 % (0.1-12.0); Hematocrit 55.6 % (37.0-47.0); Lymphocytes # 2.4 K/mm3 (0.7-4.5); Lymphocytes % 33.4 % (10-50); Mean Corpuscular HGB Conc 33.8 g/dL (31.8-35.4); Mean Corpuscular Hemoglobin 30.3 pg (27.0-31.2); Mean Corpuscular Volume 89.7 fl (81-99); Mean Platelet Volume 8.4 fl (7.4-10.4); Monocytes % 8.7 % (1.7-9.3); Neutrophils # 3.7 K/mm3 (1.8-7.8); Neutrophils % 50.9 % (37.0-80.0); Platelet Count 294 K/mm3 (142-424); Red Cell Distribution Width 13.1 % (11.5-17.5); White Blood Count 7.3 K/mm3 (4.8-10.8)
[2022-10-15 09:16] LABS: Hemoglobin 18.8 g/dL (12.2-16.2)
[2022-10-15 09:23] LABS: Creatinine,Urine Random 52 mg/dL (Not Estab.); Hemoglobin A1C 8.9 % (4.0-6.0)
[2022-10-15 09:24] LABS: Chloride 102 mmol/L (98-107); Microalbumin/Creatinine Ratio 58.4
[2022-10-15 09:25] LABS: Potassium 4.4 mmoL/L (3.5-5.1); Sodium 142 mmol/L (136-145)
[2022-10-15 09:27] LABS: Alanine Aminotransferase 21 U/L (12-78); Anion Gap 12.4 mEq/L (5-15); Aspartate Amino Transferase 25 U/L (14-36); Bilirubin,Total 0.6 mg/dl (0.2-1.3); Blood Urea Nitrogen 15 mg/dl (7-17); Carbon Dioxide 32 mmol/L (22.0-30.0); Estimated Glomerular Filt Rate 110 ml/min (>60); GFR (African American) 133 ML/MIN (>60)
[2022-10-15 09:28] LABS: Albumin/Globulin Ratio 1.7 (1.1-1.8); Alkaline Phosphatase 88 U/L (38-126); Calcium 10.1 mg/dl (8.4-10.2); Chol/HDL Ratio 3.8 (1-3.5); Cholesterol 272 mg/dl (140-200); Glucose 138 mg/dl (74-100); HDL Cholesterol 72 mg/dl (40-60); Triglycerides 139 mg/dl (30-150); VLDL Cholesterol 28 mg/dL (0-40)
[2022-10-15 09:39] LABS: Direct LDL Cholesterol 164.41 mg/dL (100-129)
[2022-10-15 09:44] LABS: 25-OH Vitamin D, Total 33.2 ng/mL (30-100)
== END ==
PROVIDERS: PCP Nurse Practitioner Family; Visit Provider Nurse Practitioner Family
DX: E11.42 Type 2 diabetes mellitus with diabetic polyneuropathy (principal); E78.2 Mixed hyperlipidemia; E55.9 Vitamin D deficiency, unspecified; Z79.4 Long term (current) use of insulin
CPT/HCPCS: 36415; 80053; 80061; 82043; 82306; 82570; 83036; 85025

== ENCOUNTER → 2023-04-14 15:08 | Outpatient (CLI) | payer BC, SELFPAY ==
--- NOTE | 2023-04-14 15:14 | XR_ITS ---
FINAL REPORT CLINICAL HISTORY: CONSTIPATION COMPARISON: None FINDINGS: SINGLE VIEW ABDOMEN A single view of the abdomen was obtained. There is a nonobstructive bowel gas pattern. There are no abnormally dilated loops of small bowel. No abnormal calcifications are identified. A moderate to large amount of stool is present in the colon. IMPRESSION: Nonobstructive bowel gas pattern with a moderate to large stool burden. Reviewed, Interpreted and Dictated by Aleks Lee III, MD Transcribed by Sabiha Staton Authenticated and [facility]
== END ==
LOC: RAD 15:09
PROVIDERS: PCP Internal Medicine Adolescent Medicine; Visit Provider Physician Assistant
DX: K59.00 Constipation, unspecified (principal)
CPT/HCPCS: 74018

== ENCOUNTER → 2023-04-15 08:35 | Outpatient (CLI) | payer BC, SELFPAY ==
[2023-04-15 08:51] LABS: Basophils # 0.1 K/mm3 (0-0.2); Basophils % 1.4 % (0.1-2.0); Eosinophils # 0.3 K/mm3 (0.0-0.4); Eosinophils % 4.2 % (0.1-12.0); Hematocrit 52.3 % (37.0-47.0); Hemoglobin 17.3 g/dL (12.2-16.2); Lymphocytes # 2.4 K/mm3 (0.7-4.5); Lymphocytes % 32.9 % (10-50); Mean Corpuscular Hemoglobin 29.6 pg (27.0-31.2); Mean Corpuscular Volume 89.7 fl (81-99); Mean Platelet Volume 9.2 fl (7.4-10.4); Monocytes # 0.7 K/mm3 (0.1-1.0); Monocytes % 9.3 % (1.7-9.3); Neutrophils # 3.8 K/mm3 (1.8-7.8); Neutrophils % 52.1 % (37.0-80.0); Platelet Count 267 K/mm3 (142-424); Red Blood Count 5.83 M/mm3 (4.20-5.40); Red Cell Distribution Width 13.1 % (11.5-17.5); White Blood Count 7.3 K/mm3 (4.8-10.8)
[2023-04-15 09:21] LABS: Hemoglobin A1C 9.2 % (4.0-6.0)
[2023-04-15 12:05] LABS: Chloride 102 mmol/L (98-107); Potassium 4.3 mmoL/L (3.5-5.1); Sodium 140 mmol/L (136-145)
[2023-04-15 12:08] LABS: Alanine Aminotransferase 30 U/L (12-78); Albumin/Globulin Ratio 1.6 (1.1-1.8); Alkaline Phosphatase 85 U/L (38-126); Anion Gap 14.3 mEq/L (5-15); Aspartate Amino Transferase 24 U/L (14-36); Bilirubin,Total 0.5 mg/dl (0.2-1.3); Blood Urea Nitrogen 18 mg/dl (7-17); Calcium 9.5 mg/dl (8.4-10.2); Carbon Dioxide 28 mmol/L (22.0-30.0); Cholesterol 159 mg/dl (140-200); Estimated Glomerular Filt Rate 109 ml/min (>60); GFR (African American) 132 ML/MIN (>60); Globulin 2.5 g/dL (1.3-3.2); Glucose 245 mg/dl (74-100); HDL Cholesterol 53 mg/dl (40-60); Total Protein,Serum 6.5 g/dl (6.3-8.2); Triglycerides 90 mg/dl (30-150); VLDL Cholesterol 18 mg/dL (0-40)
[2023-04-15 12:40] LABS: Thyroid Stimulating Hormone 2.41 uIU/mL (0.465-4.68)
== END ==
PROVIDERS: PCP Internal Medicine Adolescent Medicine; Visit Provider Physician Assistant
DX: E11.69 Type 2 diabetes mellitus with other specified complication (principal); E78.5 Hyperlipidemia, unspecified; K59.00 Constipation, unspecified; Z79.4 Long term (current) use of insulin
CPT/HCPCS: 36415; 80053; 80061; 83036; 84443; 85025

== ENCOUNTER 2023-06-04 10:52 | Emergency (ER) | payer BC, SELFPAY ==
[2023-06-04 11:05] VITALS: BP 141/91; PULSE 91; RESP 19; TEMP 36.8; O2SAT 98; BMI 23.8
--- NOTE | 2023-06-04 11:15 | XR_ITS ---
PROCEDURE INFORMATION: Exam: XR Right Foot Exam date and time: 06/04/2023 11:13 AM Age: 42 years old Clinical indication: Swelling, leg or foot; Additional info: Pain and swelling TECHNIQUE: Imaging protocol: Radiologic exam of the right foot. Views: 3 or more views. COMPARISON: CR XR FOOT WT BEARING RT 3V 12/29/2020 5:59 PM FINDINGS: Bones/joints: Hallux valgus deformity noted.No definitive osseous erosive lesions. No visible fracture or dislocation. Soft tissues: There is soft tissue swelling overlying the medial 1st MTP joint. IMPRESSION: 1. There is soft tissue swelling overlying the medial 1st MTP joint. 2. No visible fracture or dislocation.
--- NOTE | 2023-06-04 11:18 | EXP.UTC ---
Discharge Plan Disposition Patient Disposition: Home, Self-Care Condition: Good Prescriptions Prescriptions: New levofloxacin 750 mg tablet 750 mg PO DAILY 7 Days Qty: 7 0RF clindamycin HCl 300 mg capsule 300 mg PO Q8H 10 Days Qty: 30 0RF fluconazole 150 mg tablet 150 mg PO ONCE 1 Days Qty: 1 0RF No Action metformin 500 mg tablet extended release 24 hr 500 mg PO TID 30 Days Qty: 120 montelukast 10 mg tablet 10 mg PO DAILY atorvastatin 40 mg tablet 40 mg PO DAILY empagliflozin 10 mg tablet 25 mg PO DAILY gabapentin 300 mg capsule 300 mg PO TID Referrals Follow up/Referrals: Hasmukh Lopez DPM [Physician] - See instructions Umu Hameed APRN [Nurse Practitioner] - See instructions Adrian Quinonez MD [Primary Care Provider] - See instructions Activity Restrictions/Add. Instructions Additional Instructions/Restrictions: Call Podiatry tomorrow for appointment as soon as possible Take medication as prescribed Eat some yogurt and take an over the counter Probiotic with the medication that will help with GI upset you may speak to your pharmacist of which one is safe to take with your current medications Return if needed Follow up with your Family Doctor Straight to ER if any worsening of swelling and/or redness or other signs of worsening infection Clinical Impressions Clinical Impression: Diabetic foot infection Stand Alone Forms Stand Alone Forms: Work/School Release Instructions Patient Instructions: DI for Diabetic Foot Ulcer, Clindamycin, Levofloxacin Discharge ED Provider: Keesha Richard [facility] General Stated complaint: right foot swelling, no accident Mode of Arrival: Ambulatory Source of Information: Patient Limitations: No Limitations Time Seen by Provider: 06/04/23 11:18 Description of Symptoms (Recalled from Triage Doc. by RN): Pt stated that right 2nd metarasal was swollen, but now that it spread. Underneath her toe it is blackened color. She just noticed this today. HEENT Symptoms (Recalled from RN notes): No Resp Symptoms (Recalled from RN notes): No Skin Symptoms (Recalled from RN notes): No MS Symptoms (Recalled from RN notes): Yes Functional Status (Recalled from RN notes): n/a History of Present Illness Provider Complaint: Patient states that she noticed on Monday that her right second toe was looking a little swollen and her toenail is lifted and she thinks another toenail is growing underneath it and today the toe was starting to look red States that she is a diabetic and knew she needed to get some antibiotics if she had an infection States that she is not sure if she may have hit or not since the feeling in her feet is not that good from the diabetes States that her blood sugar did run high but has been better the last little bit Related Data Home Medications Medication Instructions Recorded Confirmed metformin 500 mg tablet,extended 500 mg PO TID Diabetes 30 days 01/23/18 06/04/23 release 24 hr ##120 atorvastatin 40 mg tablet 40 mg PO DAILY 05/04/23 06/04/23 empagliflozin 10 mg tablet 25 mg PO DAILY Diabetes 05/04/23 06/04/23 montelukast 10 mg tablet 10 mg PO DAILY 05/04/23 06/04/23 gabapentin 300 mg capsule 300 mg PO TID 06/04/23 06/04/23 Previous Rx's Medication Instructions Recorded clindamycin HCl 300 mg capsule 300 mg PO Q8H 10 days #30 caps 06/04/23 fluconazole 150 mg tablet 150 mg PO ONCE 1 day #1 tab 06/04/23 levofloxacin 750 mg tablet 750 mg PO DAILY 7 days #7 tabs 06/04/23 Allergies Allergy/AdvReac Type Severity Reaction Status Date / Time Penicillins [PENICILLINS] Allergy Unknown Verified 06/04/23 11:15 Worker's Comp Is this a Worker's Comp case?: No [facility] Disclaimer: The information contained in this section may have been updated after the patient was seen, as this information can be updated by other users. Medical History (Updated 06/04/23 @ 12:03 by Keesha Richard APRN) Diabetes mariposa
[2023-06-04 12:13] VITALS: BP 141/91; PULSE 91; RESP 19; TEMP 36.8; O2SAT 98
== END 2023-06-04 12:13 | disposition home or self-care (01) ==
PROVIDERS: Emergency Provider Nurse Practitioner; PCP Internal Medicine Adolescent Medicine
DX: E11.621 Type 2 diabetes mellitus with foot ulcer (principal); L97.519 Non-pressure chronic ulcer of other part of right foot with unspecified severity; F17.210 Nicotine dependence, cigarettes, uncomplicated; Z79.84 Long term (current) use of oral hypoglycemic drugs
CPT/HCPCS: 73630; 99212; 99214; G0463

== ENCOUNTER 2023-08-04 08:14 | Day surgery (SDC) | payer BC, SELFPAY ==
[2023-08-04 08:38] VITALS: BP 129/74; PULSE 90; RESP 16; TEMP 36.8; O2SAT 98
[2023-08-04 08:43] VITALS: BP 129/74; PULSE 90; RESP 16; TEMP 36.8; O2SAT 98; BMI 22.9
[2023-08-04] MEDS: LACTATED RINGERS 1000ML 1,000 ML 25 ML IV (08:47)
--- NOTE | 2023-08-04 08:57 | P.PNANES_ITS ---
[facility] Disclaimer: The information contained in this section may have been updated after the patient was seen, as this information can be updated by other users. Medical History Diabetes mellitus Hx of ovarian cancer Port-A-Cath in place Surgical History H/O laparoscopy History of section History of hysterectomy Family History Other Family history of cancer Family history of diabetes mellitus type II Family history of myocardial infarction Social History Smoking Status: Current every day smoker tobacco type: cigarettes packs per day: 1 second hand exposure: Yes alcohol intake: never substance use type: denies use current occupational status: employed Travel in the last 8 weeks: None household members: family housing: house [facility] Anesthesia Checklist Patient Identification Patient Identification: Arm Band Structural Data Admitted From: Home Planned Operative Procedure/s: Colonoscopy Consent for Planned Operative Procedure(s) Verified: Yes Verified Documents: Surgical Consent and History and Physical NPO Status Verified Time NPO: 00:00 Additional verifications Anesthesia Reactions: No Airway Assessment Mallampati Score:: Class II C-Spine Mobility Assessed: Yes TMJ Mobility Assessed: Yes Dentition: Good Dentition Neurological Assessment Level of Consciousness: Awake and Alert Anesthesia Plan Anesthesia Risk discussed: Yes Anesthesia Plan: Verified ASA Class: II Anesthesia Type: MAC
--- NOTE | 2023-08-04 09:07 | EXP.GEN.HP ---
HPI HPI HPI: Patient is a 42-year-old female referred by Dr. Adrian Quinonez for colonoscopy to investigate constipation. She has a prior history of ovarian cancer at age 16. She is never had prior colonoscopy. She has had problems with bowel function for essentially her whole life . However over the past 4 months she has had some significant difficulty moving her bowels. She had initially tried [id number] regimen and has been prescribed multiple bowel regimen without significant results. She states that she even tried magnesium citrate and had 0 results. She was sent for surgical consultation for colonoscopy. [facility] Disclaimer: The information contained in this section may have been updated after the patient was seen, as this information can be updated by other users. Medical History (Updated 08/04/23 @ 09:07 by Aleks Batres MD) Diabetes mellitus Hx of ovarian cancer Port-A-Cath in place Surgical History H/O laparoscopy History of section History of hysterectomy Family History Family history of cancer Family history of diabetes mellitus type II Family history of myocardial infarction Social History Smoking Status: Current every day smoker tobacco type: cigarettes packs per day: 1 second hand exposure: Yes alcohol intake: never substance use type: denies use current occupational status: employed Travel in the last 8 weeks: None household members: family housing: house Meds Home Medications and Allergies Home Medications Medication Instructions Recorded Confirmed Type metformin 500 mg tablet,extended 500 mg PO BID Diabetes 30 days 01/23/18 08/04/23 History release 24 hr ##120 atorvastatin 40 mg tablet 40 mg PO DAILY 05/04/23 08/04/23 History empagliflozin 10 mg tablet 25 mg PO DAILY Diabetes 05/04/23 08/04/23 History montelukast 10 mg tablet 10 mg PO DAILY 05/04/23 08/04/23 History gabapentin 300 mg capsule 300 mg PO TID 06/04/23 08/04/23 History insulin glargine U-300 conc 300 38 unit SQ DAILY 08/02/23 08/04/23 History unit/mL (1.5 mL) subcutaneous pen (Toujeo SoloStar U-300 Insulin) New Prescriptions to Start Prescriptions: Allergies Allergy/AdvReac Type Severity Reaction Status Date / Time Penicillins [PENICILLINS] Allergy Unknown Verified 08/04/23 08:34 Exam Data for Last 24 hours Vital signs and Labs for Last 24 Hours: Temp Pulse Resp BP Pulse Ox O2 Del Method 98.2 F 90 16 129/74 98 Room Air 08/04/23 08:43 08/04/23 08:43 08/04/23 08:43 08/04/23 08:43 08/04/23 08:43 08/04/23 08:43 I & O for Last 24 hours: Intake & Output 08/01/23 08/02/23 08/03/23 08/04/23 11:59 11:59 11:59 11:59 Weight 138 lb Constitutional Constitutional: no acute distress *Routine HEENT Exam Head: Present normocephalic Eye: Present EOMI and PERRL ENT: Present mucous membranes moist *Routine Neck Exam Neck: Present supple; Absent lymphadenopathy *Routine Respiratory Exam Respiratory: Present CTA bilaterally *Routine Cardiovascular Exam Cardiovascular: Present RRR *Routine Abdominal Exam Abdominal: Present soft and normoactive bowel sounds; Absent tenderness *Routine Rectal Exam Rectal:: deferred *Routine Genitalia Exam Genitalia:: deferred *Routine Extremities Exam Extremities: Absent cyanosis, clubbing or edema *Routine Skin Exam Skin: Present warm; Absent rash *Routine Neurological Exam Neurological: Present alert and oriented X3 Assessment and Plan *Assessment and plan (1) Colonoscopy planned: Status: Acute Category: Medical Plan Plan for colonoscopy
[2023-08-04 09:09] LABS: POC Glucose,Bedside 101 (70-110)
[2023-08-04 09:22] VITALS: O2SAT 99
--- NOTE | 2023-08-04 09:59 | HMH.SCOPE ---
Procedure: Date: 08/04/23 Patient Date of :: 1980 Procedure Performed:: Colonoscopy to ileocecal valve with polypectomy using cold snare Indications:: Patient is a 42-year-old female referred by Dr. Adrian Quinonez for colonoscopy to investigate constipation. She has a prior history of ovarian cancer at age 16. She is never had prior colonoscopy. She has had problems with bowel function for essentially her whole life . However over the past 4 months she has had some significant difficulty moving her bowels. She had initially tried [id number] regimen and has been prescribed multiple bowel regimen without significant results. She states that she even tried magnesium citrate and had 0 results. She was sent for surgical consultation for colonoscopy. Performing Provider:: Aleks Batres MD Referring Provider:: Adrian Quinonez MD Sedation:: MAC sedation Procedure:: Patient history was obtained and appropriate physical examination was performed. Patient's medications and allergies were reviewed. Informed consent was obtained after explaining the benefits, alternatives, and risks of the procedure including, but not limited to, bleeding, perforation, missed lesions, and adverse reaction to anesthesia medications. Patient was transported to endoscopy procedure room. Patient was connected to monitoring devices. Throughout the procedure the patient's blood pressure, pulse, and oxygen saturations were monitored continuously. Patient identification and planned procedure were verified by the staff. Patient was positioned in lateral decubitus position. Digital anorectal exam was performed. Variable stiffness Olympus colonoscope was inserted and advanced under direct visualization to the cecum. Adequacy of the colonic preparation was noted. The colonoscope was advanced a short distance into the ileocecal valve. The colonoscope was then slowly withdrawn while carefully examining the color, texture, anatomy, and integrity of the mucosoa circumferentially. Within the rectum retroflexion was performed. Colonoscope was then withdrawn. . Advancement of the colonoscope to the cecum was somewhat difficult as she had a very redundant floppy sigmoid colon. Colonoscope was able to be only advanced to the ileocecal valve and not into the terminal ileum. Colonoscope was slowly withdrawn through the colon with careful surveillance. There was some floppiness, redundancy, and tortuosity of the sigmoid colon. There is a tiny polyp at the rectosigmoid removed with cold snare. Uncertain nature. Retroflexion revealed minimal internal hemorrhoids. Colonoscope was withdrawn. . Findings:: Tortuosity and redundancy of sigmoid colon Diminutive rectosigmoid polyp Recommendations:: No significant mechanical etiology for her constipation. Likely functional. Repeat colonoscopy pending pathology. Likely 3 to 5 years Complications:: None immediately apparent Estimated blood obtained (mL): 1 Colonoscopy Component Colonoscopy Component Was a colonoscopy performed during today's procedure?: Yes Recommended follow up colonoscopy of at least 10 years?: No If no, follow up colonoscopy recommended in ___ years?: 5 Reason for not recommending >/= 10 yr follow-up interval?: Polyp
[2023-08-04 10:00] VITALS: BP 128/69; PULSE 108; RESP 16; TEMP 36.8; O2SAT 100
[2023-08-04 10:10] VITALS: BP 123/92; PULSE 104; RESP 17; O2SAT 100
[2023-08-04 10:25] VITALS: BP 140/58; PULSE 100; RESP 18; O2SAT 99
== END 2023-08-04 10:31 | disposition home or self-care (01) ==
PROVIDERS: PCP Internal Medicine Adolescent Medicine; Visit Provider Surgery
PROC: 0DJD8ZZ Inspection of Lower Intestinal Tract, Via Natural or Artificial Opening Endoscopic (ICD-10-PCS; CPT 45385; principal; 2023-08-04 09:30)
DX: K59.00 Constipation, unspecified (principal); Z85.43 Personal history of malignant neoplasm of ovary; K56.2 Volvulus; K64.8 Other hemorrhoids; K63.5 Polyp of colon; E11.9 Type 2 diabetes mellitus without complications
CPT/HCPCS: 45385; 82962

== ENCOUNTER 2023-09-02 15:09 | Outpatient (CLI) | payer BC, SELFPAY ==
--- NOTE | 2023-09-02 15:16 | XR_ITS ---
PROCEDURE INFORMATION: Exam: XR Right Foot Complete; Alignment Exam date and time: 09/02/2023 3:18 PM Age: 42 years old Clinical indication: Other: Infection in second toe; Additional info: Foot pain TECHNIQUE: Imaging protocol: Radiologic exam of the right foot. Views: 3 or more views. COMPARISON: CR XR FOOT RT MIN 3V 06/04/2023 11:13 AM FINDINGS: Bones/joints: First metatarsal phalangeal joint bunion. Moderate plantar and moderate posterior calcaneal bone spurs. Soft tissues: Normal. IMPRESSION: 1. No acute findings. 2. First metatarsal phalangeal joint bunion. 3. Moderate plantar and moderate posterior calcaneal bone spurs.
== END 2023-09-02 23:59 ==
PROVIDERS: PCP Internal Medicine Adolescent Medicine; Visit Provider Nurse Practitioner
DX: M79.671 Pain in right foot (principal)
CPT/HCPCS: 73630

== ENCOUNTER 2023-09-03 14:26 | Emergency (ER) | payer BC, SELFPAY ==
[2023-09-03 14:27] VITALS: BP 124/85; PULSE 115; RESP 18; TEMP 36.7; O2SAT 94; BMI 22.6
--- NOTE | 2023-09-03 15:10 | EXP.UTC ---
Discharge Plan Disposition Patient Disposition: Home, Self-Care Condition: Good Prescriptions Prescriptions: New azithromycin [Zithromax] 250 mg tablet 250 mg PO UD DOSE PK Qty: 6 0RF Rx Instructions: Take two (2) tablets today, then one (1) tablet days #2 thru #5 methylprednisolone 4 mg Tablets,Dose Pack 4 mg PO DIRECTED 6 Days Qty: 21 0RF Rx Instructions: Take 1 pack as directed for 6 days yscslxeeiouwhty-meimgzfno-ET [Bromfed DM] 2-30-10 mg/5 mL Syrup 5 ml PO Q6H PRN (Reason: Cough) Qty: 240 0RF No Action montelukast 10 mg tablet 10 mg PO DAILY atorvastatin 40 mg tablet 40 mg PO DAILY empagliflozin 10 mg tablet 25 mg PO DAILY gabapentin 300 mg capsule 300 mg PO TID Referrals Follow up/Referrals: Adrian Quinonez MD [Primary Care Provider] - See instructions Activity Restrictions/Add. Instructions Additional Instructions/Restrictions: Drink plenty of fluids. Take tylenol or ibuprofen for pain or fever. Take the medications as directed. Follow up with your regular doctor. GO TO THE ER FOR ANY WORSENING SYMPTOMS Quarantine until you know the results of your covid-19 test. Notify your school or workplace of your results and follow their instructions regarding return to work/school. Clinical Impressions Clinical Impression: Sinusitis Instructions Patient Instructions: Sinusitis, DI for Sinusitis, Dexamethasone Injection [place]charge ED Provider[place]ro[place] [facility] [place] General Stated complaint: Cough Mode of Arrival: Ambulatory Source of Information: Patient Limitations: No Limitations Time Seen by Provider: 09/03/23 15:10 Description of Symptoms (Recalled from Triage Doc. by RN): Pt's symptoms are cough, and SEARS HEENT Symptoms (Recalled from RN notes): Yes Resp Symptoms (Recalled from RN notes): No Skin Symptoms (Recalled from RN notes): No MS Symptoms (Recalled from RN notes): No Functional Status (Recalled from RN notes): N/a History of Present Illness Provider Complaint: She states that for the past 3 weeks she has had worsening sinus congestion and ear pain. She denies any fever/chills. Related Data Home Medications Medication Instructions Recorded Confirmed atorvastatin 40 mg tablet 40 mg PO DAILY 05/04/23 09/03/23 empagliflozin 10 mg tablet 25 mg PO DAILY Diabetes 05/04/23 09/03/23 montelukast 10 mg tablet 10 mg PO DAILY 05/04/23 09/03/23 gabapentin 300 mg capsule 300 mg PO TID 06/04/23 09/03/23 Previous Rx's Medication Instructions Recorded azithromycin 250 mg tablet 250 mg PO UD DOSE PK #6 tabs 09/03/23 (Zithromax) egmmbnwkwvehbys-[id number] 5 ml PO Q6H PRN Cough #240 mL 09/03/23 2 mg-30 mg-10 mg/5 mL oral syrup (Bromfed DM) methylprednisolone 4 mg tablets in 4 mg PO DIRECTED 6 days #21 tabs 09/03/23 a dose pack Allergies Allergy/AdvReac Type Severity Reaction Status Date / Time Penicillins [PENICILLINS] Allergy Unknown Verified 09/03/23 15:09 Worker's Comp Is this a Worker's Comp case?: No [facility] Disclaimer: The information contained in this section may have been updated after the patient was seen, as this information can be updated by other users. Medical History Diabetes mellitus Hx of ovarian cancer Port-A-Cath in place Surgical History H/O laparoscopy History of section History of hysterectomy Family History Other Family history of cancer Family history of diabetes mellitus type II Family history of myocardial infarction Social History Smoking Status: Current every day smoker tobacco type: cigarettes packs per day: 1 second hand exposure: Yes alcohol intake: never substance use type: denies use current occupational status: employed Travel in the last 8 weeks: None household members: family housing: house ROS Obtained: Yes All systems reviewed & no additional complaints except as documented Constitutional Constitutional: Reports poor appetite Eyes Eyes: Reports system reviewed and no additional complaints, except as documented ENT Ears, Nose, Mouth, and Throat: Reports as per HPI Cardiovascular Cardiovascular: Reports system reviewed and no additional complaints, except as documented and Denies chest pain Respiratory Respiratory: Denies shortness of breath, Denies chest congestion, Reports cough, Denies stridor and Denies wheezing Gastrointestinal Gastrointestingal: Reports system reviewed and no additional complaints, except as documented; Denies abdominal pain, diarrhea or vomiting Musculoskeletal Musculoskeletal: Reports system reviewed and no additional complaints, except as documented and Denies arthralgias Integumentary/Breasts Skin/Breast: Reports system reviewed and no additional complaints, except as documented and Denies rash Neurologic Neurologic: Denies paresthesias Allergic/Immunologic Allergic/Immunologic: Denies wheezing Physical Exam General General appearance: alert and in no apparent distress Eye Eye exam: Present normal appearance, PERRL and EOMI ENT ENT exam: Present mucous membranes moist and normal external ear exam Expanded ENT Exam External ear exam: Present normal external inspection TM/Canal exam: Bilateral TM: erythema and bulging Nose exam: Absent sinus tenderness Nasal speculum exam: Bilateral: normal Mouth exam: Present normal external inspection; Absent drooling Teeth exam: Present normal inspection Throat exam: Present tonsillar erythema and tonsillomegaly Neck Neck exam: Present normal inspection, full ROM and trachea midline; Absent tenderness, lymphadenopathy or thyromegaly Chest Chest inspection: Present normal inspection and symmetric chest wall rise; Absent tenderness or rash Respiratory Respiratory exam: Present normal lung sounds bilaterally; Absent respiratory distress, wheezes, stridor or accessory muscle use Cardiovascular Cardiovascular exam: Present regular rate, normal rhythm and normal heart sounds Abdominal Exam Abdominal exam: Present soft; Absent distention, tenderness, guarding, rebound or rigidity Extremities Exam Extremities exam: Present normal inspection, full ROM and normal capillary refill; Absent tenderness or calf tenderness Back Exam Back exam: Present normal inspection and full ROM; Absent tenderness Neurological Exam Neurological exam: Present alert and oriented X3 Psychiatric Psychiatric exam: Present normal affect and normal mood Skin Skin exam: Present warm, dry, intact and normal color Lymphatic Lymphatic Findings: no adenopathy Medical Decision Making Medical Records Medical records reviewed: No I reviewed the patient's medical records. Chema Inquiry Pt receiving controlled substance: No Vital Signs: 09/03/23 14:27 Temperature 98.1 F Temperature Source Oral Pulse Rate [Right Radial] 115 H Respiratory Rate 18 Blood Pressure [Right Arm] 124/85 Blood Pressure Mean [Right Arm] 98 Blood Pressure Source [Right Arm] Automatic Cuff Blood Pressure Position [Right Arm] Sitting 02 Sat by Pulse Oximetry 94 L Oxygen Delivery Method Room Air
[2023-09-03] MEDS: DEXAMETHASONE 4MG/ML 1ML VIAL 8 MG IM (15:28)
[2023-09-03 15:54] VITALS: BP 124/85; PULSE 115; RESP 18; TEMP 36.7; O2SAT 94
== END 2023-09-03 15:54 | disposition home or self-care (01) ==
PROVIDERS: Emergency Provider Nurse Practitioner Family; PCP Internal Medicine Adolescent Medicine
DX: J01.90 Acute sinusitis, unspecified (principal); R05.9 Cough, unspecified; H92.03 Otalgia, bilateral; F17.210 Nicotine dependence, cigarettes, uncomplicated; E11.9 Type 2 diabetes mellitus without complications; Z79.84 Long term (current) use of oral hypoglycemic drugs
CPT/HCPCS: 96372; 99212; 99214; G0463

== ENCOUNTER 2023-09-12 06:33 | Outpatient (CLI) | payer BC, SELFPAY | END 2023-09-12 23:59 | LOC: LAB.DROPOF 09-14 06:34 | PROVIDERS: PCP Nurse Practitioner; Visit Provider Nurse Practitioner | DX: E11.40 Type 2 diabetes mellitus with diabetic neuropathy, unspecified (principal) | CPT/HCPCS: 87070; 87205 ==

== ENCOUNTER 2023-09-12 11:26 | Outpatient (CLI) | payer BC, SELFPAY ==
[2023-09-12 11:48] LABS: Basophils # 0.1 K/mm3 (0-0.2); Basophils % 1.9 % (0.1-2.0); Eosinophils # 0.2 K/mm3 (0.0-0.4); Eosinophils % 2.2 % (0.1-12.0); Hematocrit 50.9 % (37.0-47.0); Hemoglobin 17.6 g/dL (12.2-16.2); Lymphocytes # 2.7 K/mm3 (0.7-4.5); Lymphocytes % 38.6 % (10-50); Mean Corpuscular HGB Conc 34.6 g/dL (31.8-35.4); Mean Corpuscular Hemoglobin 30.6 pg (27.0-31.2); Mean Corpuscular Volume 88.3 fl (81-99); Mean Platelet Volume 8.3 fl (7.4-10.4); Monocytes # 0.7 K/mm3 (0.1-1.0); Monocytes % 9.2 % (1.7-9.3); Neutrophils # 3.4 K/mm3 (1.8-7.8); Neutrophils % 48.1 % (37.0-80.0); Platelet Count 234 K/mm3 (142-424); Red Blood Count 5.76 M/mm3 (4.20-5.40); Red Cell Distribution Width 12.8 % (11.5-17.5); White Blood Count 7.1 K/mm3 (4.8-10.8)
[2023-09-12 12:14] LABS: Alanine Aminotransferase 17 U/L (12-78); Albumin Level 4.1 g/dl (3.5-5.0); Albumin/Globulin Ratio 1.5 (1.1-1.8); Alkaline Phosphatase 87 U/L (38-126); Anion Gap 11.4 mEq/L (5-15); Aspartate Amino Transferase 19 U/L (14-36); Bilirubin,Total 0.6 mg/dl (0.2-1.3); Blood Urea Nitrogen 12 mg/dl (7-17); Calcium 9.7 mg/dl (8.4-10.2); Carbon Dioxide 30 mmol/L (22.0-30.0); Chloride 99 mmol/L (98-107); Estimated Glomerular Filt Rate 135 ml/min (>60); GFR (African American) 163 ML/MIN (>60); Globulin 2.7 g/dL (1.3-3.2); Glucose 280 mg/dl (74-100); Potassium 4.4 mmoL/L (3.5-5.1); Sodium 136 mmol/L (136-145); Total Protein,Serum 6.8 g/dl (6.3-8.2)
[2023-09-12 12:19] LABS: C-Reactive Protein 4.5 mg/L (0-4)
[2023-09-12 13:10] LABS: Erythrocyte Sedimentation Rate 8 mm/hr (0-20)
[2023-09-12 13:53] LABS: Hemoglobin A1C 9.5 % (4.0-6.0)
== END 2023-09-12 23:59 ==
LOC: LAB 11:27
PROVIDERS: Nurse Practitioner; PCP Internal Medicine Adolescent Medicine; Visit Provider Podiatrist
DX: E11.40 Type 2 diabetes mellitus with diabetic neuropathy, unspecified (principal); L84 Corns and callosities; M25.571 Pain in right ankle and joints of right foot; B95.62 Methicillin resistant Staphylococcus aureus infection as the cause of diseases classified elsewhere; B95.1 Streptococcus, group B, as the cause of diseases classified elsewhere
CPT/HCPCS: 36415; 80053; 83036; 85025; 85651; 86140; 87070; 87205

== ENCOUNTER 2023-09-28 15:00 | Outpatient (CLI) | payer BC, SELFPAY ==
--- NOTE | 2023-09-28 15:05 | US_ITS ---
FINAL REPORT CLINICAL HISTORY: Decreased sensation of lower extremity, Smokere, DM, Right ankle fracture with slow healing FINDINGS: BILATERAL ANKLE BRACHIAL INDICES Pressure indices are as follows are: RIGHT LOWER EXTREMITY Ankle brachial pressure index: 0.98 Toe brachial pressure index: 0.83 COMMENTS: Normal LEFT LOWER EXTREMITY Ankle brachial pressure index: 1.06 Toe brachial pressure index: 1.02 COMMENTS: Normal IMPRESSION: No evidence of significant obstructive peripheral vascular disease of the lower extremities. Reviewed, Interpreted and Dictated by Coy Millan MD Transcribed by Stacy Clancy Authenticated and . [facility]
== END 2023-09-28 23:59 ==
LOC: RT 15:01
PROVIDERS: PCP Nurse Practitioner; Visit Provider Podiatrist
DX: R20.8 Other disturbances of skin sensation (principal)
CPT/HCPCS: 93923

== ENCOUNTER 2023-12-19 16:15 | Outpatient (CLI) | payer BC, SELFPAY ==
--- NOTE | 2023-12-19 16:20 | XR_ITS ---
FINAL REPORT CLINICAL HISTORY: ACUTE COUGH COMPARISON: 11/16/2020 FINDINGS: Two views of the chest were obtained. The heart size and pulmonary vascularity are within normal limits. The mediastinum is normal. No acute pulmonary abnormality is identified. There is no pneumothorax. The bony thorax is intact. IMPRESSION: No active cardiopulmonary disease. Reviewed, Interpreted and Dictated by Aleks Lee III, MD Transcribed by Hoa Marshall Authenticated and . [facility]
== END 2023-12-19 23:59 | disposition home or self-care (01) ==
LOC: RAD 16:16
PROVIDERS: PCP Internal Medicine Adolescent Medicine; Visit Provider Nurse Practitioner Family
DX: R05.1 Acute cough (principal)
CPT/HCPCS: 71046

== ENCOUNTER 2024-10-17 08:42 | Outpatient (CLI) | payer BC, SELFPAY ==
--- NOTE | 2024-10-17 08:44 | XR_ITS ---
FINAL REPORT TECHNIQUE: 3 views right foot CLINICAL HISTORY: second digit lesion COMPARISON: 09/02/2023 FINDINGS: RIGHT FOOT: 3 images of the right foot were obtained. There is no evidence of fracture or dislocation. There is a mild to moderate hallux valgus deformity, with mild hypertrophic changes. There is extensive soft tissue swelling in the distal aspect of the second digit, with underlying bone erosion in the distal aspect of the second distal phalanx. This is new since the prior exam of 09/02/2023. IMPRESSION: Extensive soft tissue swelling in the distal aspect of the second toe, with underlying bony erosions in the distal aspect of the second distal phalanx, the erosions new since the prior exam. Reviewed, Interpreted and Dictated by Coy Millan MD Transcribed by Sabiha Staton Authenticated and [facility]
== END 2024-10-17 23:59 | disposition home or self-care (01) ==
LOC: RAD 08:43
PROVIDERS: PCP Internal Medicine Adolescent Medicine; Visit Provider Nurse Practitioner
DX: M79.671 Pain in right foot (principal); E11.621 Type 2 diabetes mellitus with foot ulcer; L97.512 Non-pressure chronic ulcer of other part of right foot with fat layer exposed; L84 Corns and callosities; B95.8 Unspecified staphylococcus as the cause of diseases classified elsewhere; B96.29 Other Escherichia coli [E. coli] as the cause of diseases classified elsewhere
CPT/HCPCS: 73630; 87070; 87077; 87186; 87205

== ENCOUNTER 2024-10-17 09:44 | Emergency (ER) | payer BC, SELFPAY ==
[2024-10-17 09:53] VITALS: BP 163/90; PULSE 95; RESP 16; TEMP 36.7; O2SAT 98; BMI 22.8
--- NOTE | 2024-10-17 10:13 | ED_ITS ---
Discharge Plan Disposition Patient Disposition: Home, Self-Care Condition: Good Prescriptions Prescriptions: New clindamycin HCl 300 mg capsule 300 mg PO Q8H 14 Days Qty: 42 0RF ciprofloxacin HCl 750 mg tablet 750 mg PO BID 14 Days Qty: 20 0RF No Action albuterol sulfate 90 mcg/actuation HFA aerosol inhaler inhalation Patient Comments: INHALE 2 PUFFS BY MOUTH EVERY 6 HOURS NEEDED FOR WHEEZING FOR 30 DAYS fluticasone propionate 50 mcg/actuation spray,suspension intranasal DAILY Patient Comments: USE 1 SPRAY(S) IN EACH NOSTRIL ONCE DAILY FOR 30 DAYS levocetirizine 5 mg tablet PO Patient Comments: TAKE 1 TABLET BY MOUTH ONCE DAILY IN THE EVENING insulin glargine U-300 conc [Toujeo Max U-300 SoloStar] 300 unit/mL (3 mL) insulin pen SQ Patient Comments: INJECT 44 UNITS SUBCUTANEOUSLY ONCE DAILY urea 40 % cream 1 applic topical BID 30 Days Qty: 28 3RF sertraline [Zoloft] 50 mg tablet 50 mg PO DAILY montelukast 10 mg tablet 10 mg PO DAILY atorvastatin 40 mg tablet 40 mg PO DAILY mupirocin 2 % ointment 1 applic topical BID 21 Days Qty: 22 1RF Rx Instructions: Apply to affected area up to twice daily doxycycline hyclate 100 mg capsule 100 mg PO BID 14 Days Qty: 28 0RF empagliflozin 10 mg tablet 25 mg PO DAILY gabapentin 300 mg capsule 300 mg PO TID Referrals Follow up/Referrals: Adrian Quinonez MD [Primary Care Provider] - See instructions Activity Restrictions/Add. Instructions Additional Instructions/Restrictions: As we discussed, I prescribed a course of antibiotics and the podiatrists will follow up your CT scan that was just performed in order to determine next steps. Please follow-up with them on Monday. Please return with any new or worsening symptoms. Clinical Impressions Clinical Impression: Diabetic infection of left foot Print Language Print Language: Monegasque Discharge ED Provider: Leon Adame Adult HPI General Chief complaint: Extremity Injury, Lower Stated complaint: inf. toe rt foot, sent by doctor Time Seen by Provider: 10/17/24 10:13 Mode of Arrival: Ambulatory Source of Information: Patient Description of Symptoms (Recalled from ER Triage Doc. by RN): Patient states she was seen by podiatry and there is concern for infection of her right second toe. Toe is black with redness around it. No complaints of pain. History of Present Illness HPI narrative: Patient presents from podiatry clinic with clinical concerns for osteomyelitis. I discussed the case with patient as well as clinician at podiatry clinic. Patient has ongoing wound of her right second toe. This was probed to clinic with concern that probe was able to reach bone, prompting concern for osteomyelitis. Patient denies any new injury. Denies any fevers or chills. She has a history of diabetic neuropathy. No lesions elsewhere. She denies any drainage from this foot. Please note that above description of symptoms, in this electronic medical record under categorization of recalled from ER triage doctor by RN are reflective of an initial nursing assessment, however, is not reflective of my full history and physical exam that was personally taken and clarified. Consequentially, this preceding description of symptoms, which may include the patient's categorized chief complaint in the EMR, do not reflect my personal clinical impression, and the ultimate description of history of present illness and patient stated complaints should be deferred to this section of the note. Unless stated otherwise or congruent with this section of the note, additional signs, symptoms, or incongruence should be interpreted as inaccurate with my clinical impression. Related Data Home Medications ?Medication ?Instructions ?Recorded ?Confirmed atorvastatin 40 mg tablet 40 mg PO DAILY 05/04/23 10/17/24 empagliflozin 10 mg tablet 25 mg PO DAILY Diabetes 05/04/23 10/17/24 montelukast 10 mg tablet 10 mg PO DAILY 05/04/23 10/17/24 gabapentin 300 mg capsule 300 mg PO TID 06/04/23 10/17/24 albuterol sulfate 90 mcg/actuation inhalation 01/11/24 10/17/24 aerosol inhaler fluticasone propionate 50 intranasal DAILY 01/11/24 10/17/24 mcg/actuation nasal spray,suspension insulin glargine U-300 conc 300 unit SQ 01/11/24 10/17/24 unit/mL (3 mL) subcutaneous pen (Toujeo Max U-300 SoloStar) levocetirizine 5 mg tablet mg PO 01/11/24 10/17/24 sertraline 50 mg tablet (Zoloft) 50 mg PO DAILY 08/14/24 10/17/24 Previous Rx's ?Medication ?Instructions ?Recorded mupirocin 2 % topical ointment 1 applic topical BID cellulitis 3 09/12/23 weeks #22 grams urea 40 % topical cream 1 applic topical BID 30 days #28 01/12/24 grams doxycycline hyclate 100 mg capsule 100 mg PO BID infection 14 days 10/14/24 #28 caps ciprofloxacin HCl 750 mg tablet 750 mg PO BID 14 days #20 tabs 10/17/24 clindamycin HCl 300 mg capsule 300 mg PO Q8H 14 days #42 caps 10/17/24 Allergies Allergy/AdvReac Type Severity Reaction Status Date / Time Penicillins (PENICILLINS) Allergy Unknown Verified 10/17/24 09:04 [facility] Disclaimer: The information contained in this section may have been updated after the patient was seen, as this information can be updated by other users. Medical History Port-A-Cath in place Hx of ovarian cancer Diabetes mellitus Surgical History History of hysterectomy H/O laparoscopy History of section Family History Other Family history of cancer Family history of diabetes mellitus type II Family history of myocardial infarction Social History Smoking Status: Current every day smoker tobacco type: cigarettes packs per day: 1 second hand exposure: Yes alcohol intake: never substance use type: denies use current occupational status: employed Travel in the last 8 weeks: None household members: family housing: house Other Medical History Have you received the Flu Vaccine for this season: No Have you received the Pneumonia Vaccine: No ROS Obtained: Yes other As per HPI Physical Exam General General appearance: alert and in no apparent distress Head Head exam: atraumatic and normocephalic Eye Eye exam: Present normal appearance Neck Neck exam: Present normal inspection Chest Chest inspection: Present normal inspection and symmetric chest wall rise Respiratory Respiratory exam: Present normal lung sounds bilaterally; Absent respiratory distress Cardiovascular Cardiovascular exam: Present regular rate and normal rhythm Abdominal Exam Abdominal exam: Present soft Neurological Exam Neurological exam: Present alert and oriented X3 Psychiatric Psychiatric exam: Present normal affect and normal mood Skin Skin exam: Present warm and dry Other Other exam information: Ulcerative lesion over right second toe. Open wound clinically consistent with recent probing at podiatry clinic. Medical Decision Making Medical Records Medical records reviewed: Yes I reviewed the patient's medical records. Screening: Per USPSTF and CDC recommendations, given the prevalence of disease in our region, it is our hospital?s policy to screen for HIV and viral Hepatitis for all patients aged 18 and over and those with ongoing risk factors. Chema Inquiry Pt receiving controlled substance: No Vital Signs: 10/17/24 09:53 10/17/24 10:30 10/17/24 12:14 Temperature 98.1 F 98.4 F Temperature Source Oral Pulse Rate 75 83 Pulse Rate [Radial] 95 H Respiratory Rate 16 20 Blood Pressure 108/64 L 155/99 H Blood Pressure [Right Arm] 163/90 H Blood Pressure Mean 81 Blood Pressure Mean [Right Arm] 114 Blood Pressure Source [Right Arm] Automatic Cuff Blood Pressure Position [Right Arm] Sitting 02 Sat by Pulse Oximetry 98 96 Oxygen Delivery Method Room Air Room Air Lab Data Lab Results 10/17/24 10:03: HCV Ab KATHY w/Rflx PCR Qn Negative, HIV Ag/Ab Combo Qual Negative 10/17/24 10:08: WBC 8.2, RBC 5.86 H, Hgb 17.8 H, Hct 50.3 H, MCV 85.8, MCH 30.4, MCHC 35.4, RDW 11.9, Plt Count 304, MPV 11.3 H, Neut % (Auto) 65.1, Lymph % (Auto) 25.6, [place] % (Auto) 6.0, Eos % (Auto) 1.8, Baso % (Auto) 1.1, Neut # (Auto) 5.3, Lymph # (Auto) 2.1, [place] # (Auto) 0.5, Eos # (Auto) 0.2, Baso # (Auto) 0.1, ESR 6, Sodium 138, Potassium 3.8, Chloride 103, Carbon Dioxide 28, Anion Gap 10.8, BUN 13, Creatinine 0.50 L, Estimated Creat Clear 141, Estimated GFR 134, Est GFR ( Amer) 162, Glucose 213 H, Calcium 9.2, Total Bilirubin 0.5, AST 29, ALT 22, Alkaline Phosphatase 109, C-Reactive Protein 9.9 H, Total Protein 8.2, Albumin 5.1 H, Globulin 3.1, Albumin/Globulin Ratio 1.6 10/17/24 10:08 10/17/24 10:08 Orders (Tests/Meds): ORDERS Category Date Time Status CT foot RT w con Stat Cat Scan 10/17/24 11:34 Completed CBC w/Auto Diff [Complete Blood Count Auto Diff] Stat Lab 10/17/24 10:08 Completed CMP [Comprehensive Metabolic Panel] Stat Lab 10/17/24 10:08 Completed CRP [C-Reactive Protein] Stat Lab 10/17/24 10:08 Completed ESR [Erythrocyte Sedimentation Rate] Stat Lab 10/17/24 10:08 Completed HIV Combo Stat Lab 10/17/24 10:03 Completed Hepatitis C Ab Qual. W/ RFX Stat Lab 10/17/24 10:03 Completed Medical Decision Narrative: Patient with history and exam per above presenting for evaluation of foot wound Diagnoses considered include cellulitis, osteomyelitis, no clinical evidence to suggest necrotizing soft tissue infection at this time. Patient is overall well-appearing at this time. Patient was sent from clinic for further evaluation including possible imaging given proceduralist out of office until Monday. ED workup and treatment included: ORDERS Category Date Time Status CT foot RT w con Stat Cat Scan 10/17/24 11:34 Completed CBC w/Auto Diff [Complete Blood Count Auto Diff] Stat Lab 10/17/24 10:08 Completed CMP [Comprehensive Metabolic Panel] Stat Lab 10/17/24 10:08 Completed CRP [C-Reactive Protein] Stat Lab 10/17/24 10:08 Completed ESR [Erythrocyte Sedimentation Rate] Stat Lab 10/17/24 10:08 Completed HIV Combo Stat Lab 10/17/24 10:03 Completed Hepatitis C Ab Qual. W/ RFX Stat Lab 10/17/24 10:03 Completed Labs were independently interpreted by me, significant for no leukocytosis, CRP 9.9 After shared decision making and follow-up conversation with podiatry, patient was discharged prior to results of imaging. Both patient and podiatry comfortable with this plan at this time. Patient will be discharged on course of antibiotics. Return precautions given Critical Care Critical Care Time Critical Care Time: No
--- NOTE | 2024-10-17 10:24 | PC.NURSE ---
MESSAGE LEFT FOR PODIATRY TO CALL
[2024-10-17 10:30] VITALS: BP 108/64; PULSE 75; O2SAT 96
[2024-10-17 10:39] LABS: Basophils # 0.1 K/mm3 (0-0.2); Basophils % 1.1 % (0.1-2.0); Eosinophils # 0.2 K/mm3 (0.0-0.4); Eosinophils % 1.8 % (0.1-12.0); Hematocrit 50.3 % (37.0-47.0); Hemoglobin 17.8 g/dL (12.2-16.2); Lymphocytes # 2.1 K/mm3 (0.7-4.5); Lymphocytes % 25.6 % (10-50); Mean Corpuscular HGB Conc 35.4 g/dL (31.8-35.4); Mean Corpuscular Hemoglobin 30.4 pg (27.0-31.2); Mean Corpuscular Volume 85.8 fl (81-99); Mean Platelet Volume 11.3 fl (7.4-10.4); Monocytes # 0.5 K/mm3 (0.1-1.0); Neutrophils # 5.3 K/mm3 (1.8-7.8); Neutrophils % 65.1 % (37.0-80.0); Platelet Count 304 K/mm3 (142-424); Red Blood Count 5.86 M/mm3 (4.20-5.40); Red Cell Distribution Width 11.9 % (11.5-17.5); White Blood Count 8.2 K/mm3 (4.8-10.8)
[2024-10-17 10:44] LABS: Alanine Aminotransferase 22 U/L (12-78); Albumin Level 5.1 g/dl (3.5-5.0); Albumin/Globulin Ratio 1.6 (1.1-1.8); Alkaline Phosphatase 109 U/L (38-126); Anion Gap 10.8 mEq/L (5-15); Aspartate Amino Transferase 29 U/L (14-36); Bilirubin,Total 0.5 mg/dl (0.2-1.3); Blood Urea Nitrogen 13 mg/dl (7-17); Calcium 9.2 mg/dl (8.4-10.2); Carbon Dioxide 28 mmol/L (22.0-30.0); Chloride 103 mmol/L (98-107); Creatinine Clearance Estimated 141 mL/min (50-200); Estimated Glomerular Filt Rate 134 ml/min (>60); GFR (African American) 162 ML/MIN (>60); Globulin 3.1 g/dL (1.3-3.2); Glucose 213 mg/dl (74-100); Potassium 3.8 mmoL/L (3.5-5.1); Sodium 138 mmol/L (136-145); Total Protein,Serum 8.2 g/dl (6.3-8.2)
[2024-10-17 10:49] LABS: C-Reactive Protein 9.9 mg/L (0-4)
[2024-10-17 11:28] LABS: Erythrocyte Sedimentation Rate 6 mm/hr (0-20)
--- NOTE | 2024-10-17 11:30 | PC.NURSE ---
DR LUND SPEAKING WITH SRIDEVI VANCE APRN WITH PODIATRY
--- NOTE | 2024-10-17 11:33 | PC.NURSE ---
DR LUND AT BEDSIDE TO UPDATE PT
--- NOTE | 2024-10-17 11:34 | CT_ITS ---
FINAL REPORT TECHNIQUE: Axial images of the left foot were obtained at the menstruation of IV contrast. Coronal and sagittal reconstructions were obtained and reviewed. This study was performed with techniques to keep radiation doses as low as reasonably achievable, (ALARA). Individualized dose reduction techniques using automated exposure control or adjustment of mA and/or kV according to the patient's size were employed. CLINICAL HISTORY: diabetic foot infection, concern on xr for osteo COMPARISON: None FINDINGS: There is soft tissue edema overlying the first metatarsophalangeal joint. Degenerative subchondral cyst formation is noted in the medial portion of the distal first metatarsal. There is cyst formation along the plantar aspect of the distal first metatarsal measuring up to 1 cm. Soft tissue edema is noted at the distal second digit with subcutaneous emphysema, well-seen on images 51-55 of series 1002. There is questionable subtle erosion of the distal portion of the distal second phalange. Findings are concerning for acute osteomyelitis. IMPRESSION: Subcutaneous emphysema and bony erosion of the distal second digit. Soft tissue edema first metatarsal phalangeal joint. Reviewed, Interpreted and Dictated by Coy Millan MD Transcribed by Hoa Marshall Authenticated and [facility]
[2024-10-17 11:54] LABS: HIV Combo NEGATIVE (Negative)
[2024-10-17 12:02] LABS: Hepatitis C Ab Qual. W/ RFX NEGATIVE (Negative)
[2024-10-17 12:14] VITALS: BP 155/99; PULSE 83; RESP 20; TEMP 36.9; O2SAT 96
== END 2024-10-17 12:15 | disposition home or self-care (01) ==
PROVIDERS: Emergency Provider Emergency Medicine; PCP Internal Medicine Adolescent Medicine
DX: E11.628 Type 2 diabetes mellitus with other skin complications (principal); L08.9 Local infection of the skin and subcutaneous tissue, unspecified; F17.210 Nicotine dependence, cigarettes, uncomplicated; E11.40 Type 2 diabetes mellitus with diabetic neuropathy, unspecified; Z79.4 Long term (current) use of insulin
CPT/HCPCS: 73701; 80053; 85025; 85651; 86140; 86803; 87389; 99284; 99285

== ENCOUNTER 2024-10-21 13:00 | Outpatient (CLI) | payer BC, SELFPAY ==
--- NOTE | 2024-10-21 13:03 | XR_ITS ---
FINAL REPORT CLINICAL HISTORY: pre-op testing surgery monday or monday for toe removal COMPARISON: 12/19/2023 FINDINGS: PA and lateral views of the chest were obtained. No acute pulmonary density is evident. There is no evidence of effusion or other pleural disease. The mediastinum has a normal appearance. The cardiac silhouette is unremarkable. IMPRESSION: Unremarkable chest exam. Reviewed, Interpreted and Dictated by Irma Tejada MD Transcribed by Hoa Marshall Authenticated and . [facility]
--- NOTE | 2024-10-21 13:15 | ECG_ITS ---
APPROVED REPORT Exam: Resting ECG HR:68 bpm ECG Measurements Heart Rate 68 AXES CO 168 P 36 QRSd 91 QRS 100 QT 379 T 47 QTc 396 Conclusion SINUS RHYTHM BORDERLINE RIGHT AXIS DEVIATION [QRS AXIS > 90] BORDERLINE ECG UNCONFIRMED REPORT Electronically signed by : Adrian Quinonez MD 10/22/2024 08:55:14
== END 2024-10-21 23:59 | disposition home or self-care (01) ==
LOC: RAD 13:01
PROVIDERS: PCP Internal Medicine Adolescent Medicine; Visit Provider Podiatrist
DX: Z01.818 Encounter for other preprocedural examination (principal); E11.621 Type 2 diabetes mellitus with foot ulcer; L97.519 Non-pressure chronic ulcer of other part of right foot with unspecified severity
CPT/HCPCS: 71046; 93005

== ENCOUNTER 2024-10-23 09:44 | Day surgery (SDC) | payer BC, SELFPAY ==
[2024-10-22 09:28] VITALS: BMI 22.8
[2024-10-23] VITALS (9 sets, daily range): BP systolic 109–145; BP diastolic 71–92; PULSE 71–85; RESP 16–18; TEMP 36.1–36.6; O2SAT 98–100
[2024-10-23 10:11] LABS: POC Glucose,Bedside 117 (70-110)
[2024-10-23] MEDS: VANCOMYCIN HCL 1,000 MG in 0.9 % SODIUM CHLORIDE 250 ML 125 MG IV ×2 (10:11→11:39)
[2024-10-23] MEDS: LACTATED RINGERS 1000ML 1,000 ML 30 ML IV (10:11)
[2024-10-23 10:18] LABS: Albumin Level 4.8 g/dl (3.5-5.0); Chloride 103 mmol/L (98-107); Potassium 3.5 mmoL/L (3.5-5.1); Sodium 140 mmol/L (136-145)
[2024-10-23 10:19] LABS: Basophils # 0.1 K/mm3 (0-0.2); Basophils % 1.2 % (0.1-2.0); Eosinophils # 0.2 K/mm3 (0.0-0.4); Eosinophils % 2.8 % (0.1-12.0); Hematocrit 49.8 % (37.0-47.0); Hemoglobin 17.6 g/dL (12.2-16.2); Lymphocytes # 2.2 K/mm3 (0.7-4.5); Lymphocytes % 29.5 % (10-50); Mean Corpuscular HGB Conc 35.3 g/dL (31.8-35.4); Mean Corpuscular Hemoglobin 30.9 pg (27.0-31.2); Mean Corpuscular Volume 87.4 fl (81-99); Mean Platelet Volume 10.4 fl (7.4-10.4); Monocytes # 0.5 K/mm3 (0.1-1.0); Monocytes % 6.9 % (1.7-9.3); Neutrophils # 4.5 K/mm3 (1.8-7.8); Neutrophils % 59.2 % (37.0-80.0); Platelet Count 350 K/mm3 (142-424); Red Cell Distribution Width 12.1 % (11.5-17.5); White Blood Count 7.6 K/mm3 (4.8-10.8)
[2024-10-23 10:21] LABS: Alanine Aminotransferase 23 U/L (12-78); Albumin/Globulin Ratio 1.8 (1.1-1.8); Alkaline Phosphatase 84 U/L (38-126); Anion Gap 9.5 mEq/L (5-15); Aspartate Amino Transferase 32 U/L (14-36); Bilirubin,Total 0.6 mg/dl (0.2-1.3); Blood Urea Nitrogen 15 mg/dl (7-17); Carbon Dioxide 31 mmol/L (22.0-30.0); Creatinine Clearance Estimated 117 mL/min (50-200); Estimated Glomerular Filt Rate 109 ml/min (>60); GFR (African American) 131 ML/MIN (>60); Globulin 2.7 g/dL (1.3-3.2); Total Protein,Serum 7.5 g/dl (6.3-8.2)
[2024-10-23 10:22] LABS: Calcium 9.2 mg/dl (8.4-10.2); Glucose 120 mg/dl (74-100)
--- NOTE | 2024-10-23 11:06 | EXP.ANES.CKL ---
[facility] Disclaimer: The information contained in this section may have been updated after the patient was seen, as this information can be updated by other users. Medical History History of TIA (transient ischemic attack) HLD (hyperlipidemia) Port-A-Cath in place Hx of ovarian cancer Diabetes mellitus Surgical History History of hysterectomy H/O laparoscopy History of section Family History Other Family history of cancer Family history of diabetes mellitus type II Family history of lung disease Family history of myocardial infarction Social History Smoking Status: Current every day smoker tobacco type: cigarettes packs per day: 1 second hand exposure: Yes alcohol intake: never substance use type: denies use current occupational status: employed Travel in the last 8 weeks: None household members: family housing: house Have you lived/traveled outside [place] in past 30 days?: No Contact w/someone who lives/traveled outside [place] past 30 days?: No Exposure to someone with infectious disease in past 14 days?: No Do you have a fever (greater than 100.4 F or 38 C)?: No Have you tested positive for COVID-19: No Exposed to someone with COVID-19 in past 14 days?: No Do you have a sore throat?: No Do you have a cough?: No Do you have any weakness?: No Do you have any diarrhea?: No Are you experiencing any unusual bleeding?: No Do you have any muscle aches/pain?: No Do you have any abdominal pain?: No Are you experiencing loss of taste or smell?: No [facility] Anesthesia Checklist Patient Identification Patient Identification: Arm Band Structural Data Admitted From: Home Planned Operative Procedure/s: Right 2nd Toe Amputation Consent for Planned Operative Procedure(s) Verified: Yes Verified Documents: Surgical Consent and History and Physical NPO Status Verified Time NPO: 00:00 Additional verifications Anesthesia Reactions: No Hx Blood Transfusions: No Blood Transfusion Reaction: No Airway Assessment Mallampati Score:: Class II C-Spine Mobility Assessed: Yes TMJ Mobility Assessed: Yes Dentition: Good Dentition Neurological Assessment Level of Consciousness: Awake, Alert and Appropriate Anesthesia Plan Anesthesia Risk discussed: Yes Anesthesia Plan: Verified ASA Class: II Anesthesia Type: General
--- NOTE | 2024-10-23 11:22 | P.PNANES_ITS ---
[facility] Anesthesia Record Part I Anesthesia Record I Intake, IV Amount: 800 Hydration: Adequate Estimated blood loss (mL): 5 Urine output (mL): 0 Blood Products used (#): none Blood Pressure: 157/95 SaO2: 95 Pulse Rate: 89 Airway Patency: Patent Respiratory Rate: 12 Temperature: 98.2 F Patient is:: Awake, Drowsy and Stable Stable to PACU at:: 11:22
[2024-10-23 11:31] LABS: Hemoglobin A1C 8.6 % (4.0-6.0)
[2024-10-23] MEDS: LEVOFLOXACIN/D5W 500 MG/100 ML PIGGYBACK 100 MG IV (11:39)
[2024-10-23] MEDS: GENTAMICIN 80 MG/2 ML VIAL (11:58)
[2024-10-23] MEDS: BUPIVACAINE 0.5% 30ML VIAL 150 MG (11:58)
--- NOTE | 2024-10-23 12:44 | XR_ITS ---
FINAL REPORT CLINICAL HISTORY: S/p right 2nd toe amp COMPARISON: 10/17/2024 FINDINGS: RIGHT FOOT 3 views of the right foot were obtained. There is been interval amputation of the second digit at the level of the MTP joint. There is moderate hallux valgus deformity. Mild osteopenia is seen. There is no acute fracture or dislocation. There is mild calcaneal spurring. Visualized joint spaces are normally aligned. Soft tissues are unremarkable. IMPRESSION: Interval amputation of the second digit without acute bony abnormality. Reviewed, Interpreted and Dictated by Irma Tejada MD Transcribed by Kylee Mcgrath Authenticated and [facility]
--- NOTE | 2024-10-23 12:45 | P.OP_ITS ---
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 Recent radiographs and CT of the right foot were reviewed and discussed with the patient. Images shows cortical changes of the distal second phalanx concerning for osteomyelitis. Patient is on oral antibiotics: Doxycycline, clindamycin, Cipro. We discussed conservative versus surgical treatment options. Conservative treatment options include local wound care, oral and IV antibiotics, change in shoe wear, taping/padding, and off-loading. Discussed that patient would benefit from a wider and deeper shoe wear to accommodate the deformity post op. We discussed surgical intervention for amputation of the right 2nd toe. Patient understands that there is a chance that the toes can migrate to fill the gap or the foot may change shape after surgery. Patient also understands that they could have wound healing complications including delayed healing and infection. We discussed that if the wound does not heal, it is possible that they may need a more proximal amputation and could re sult in further loss of digits, loss of partial foot or loss of leg. We discussed the risks and benefits in great detail. Discussed arterial studies from 09/28/23 show EBENEZER R 0.98, TBI 0.83 and EBENEZER L 1.06, TBI 1.02 with adequate healing and palpable pedal pulses. However discussed due to DM and tobacco abuse, she could have delay in healing of soft tissue or bone. Other surgical risks include: prolonged pain and swelling, further infection requiring oral or IV antibiotics, delay in healing of soft tissue or bone, nerve or blood vessel damage, CRPS/RSD, DVT/PE, anesthesia complications, and even . All questions answered. Patient verbalized understanding. Written consent obtained. Operative findings:: Right second toenail diabetic foot ulcer to the dorsal DIPJ with exposed phalanx bone. No michelle purulence or drainage noted. Distal tip of the second toe was dry gangrene. Bone infection seems isolated to the distal and middle phalanx however there was some questionable cortical changes to the proximal phalanx so it was removed. Callus to the plantar medial hallux debrided with no underlying ulcer noted. The first and fifth toenails were thick and yellow. The third and fourth toenails were thick yellow with discoloration and subungual debris. Concern for the right third toenail underlying ulcer under the nailbed. After nail debridement, no nail bed ulcer noted. Operative note:: On this date and time patient was deemed an appropriate surgical candidate. With informed consent signed, patient was taken to operating theater. The patient was positioned supine. LMA anesthesia was induced. IV Vanco, Levo infused. Callus debridement: Attention was directed to the plantar medial hallux where ulcer was noted. 15 blade used to debride ulcer full-thickness through skin only. No underlying ulcer noted. Nail debridement x 4: The right hallux, 3rd through 5th toenails were debrided with nail nipper. The third and fourth toenails were thick irregular with yellow discoloration. No ulcer underneath the third toenail. Right 2nd digit amputation: The right lower extremity was prepped and drapped in normal sterile fashion. A fish mouth incision was mapped out around the PIPJ. Utilizing a 15 blade dissection was carried down sharply to the level of the bone around the middle phalanx which was disarticulated from the proximal phalanx. The distal and middle phalanx bone was soft and crumbly and had mild malodor to it. Portion of it was cut and sent for bone culture and the other part was sent for bone biopsy for pathology. Attention was then directed to the proximal phalanx. The head was hard but had some cortical erosions noted. So proximal phalanx was disarticulated from the second metatarsal head. Second met head was hard and intact with no obvious cortical erosions or signs of infection noted. Next gentamicin irrigation was used to flush the wound. The wound was reexplored and no further signs of infection noted. Bleeding controlled. No vessels ligated with electrocautery or tied as there was minimal to no blood loss. Vicryl used to close capsule over the second met head. Nylon was used to close skin in an interrupted simple suture fashion. 10cc 0.5% marcaine plain given at end of case. The wounds were cleansed. Xeroform, betadine soaked gauze, dry sterile dressing was then applied to the foot. Patient was awoken from anesthesia and transferred to recovery with vital signs stable and neurovascular status intact. She appeared to tolerate procedure and anesthesia well without complication. Materials: 3-0 Prolene Discharge/Plan: Patient is to maintain dressing clean dry and intact. Partial weight bearing to the right lower extremity in short fracture boot with walker. Completed oral antibiotics. IV Vanco, Levo given today. Has oral Doxy, Clinda, Cipro for post-op Obtain post op films, right foot, 3 views. Follow up in one week for skin check and dressing change. Condition: stable Disposition: same day Specimens:: Right 2nd toe bone culture Right 2nd toe bone path Right proximal phalanx bone path Complications:: None
--- NOTE | 2024-10-23 12:47 | P.PNANES_ITS ---
[facility] Anesthesia Record Part I Anesthesia Record I Intake, IV Amount: 800 Hydration: Adequate Estimated blood loss (mL): 5 Urine output (mL): 0 Blood Products used (#): none Blood Pressure: 130/78 SaO2: 99 Pulse Rate: 79 Airway Patency: Patent Respiratory Rate: 18 Temperature: 97.9 F Patient is:: Awake and Stable
[2024-10-23 12:52] LABS: Erythrocyte Sedimentation Rate 25 mm/hr (0-20)
--- NOTE | 2024-10-24 14:42 | P.PNANES_ITS ---
[facility] Anesthesia Record Part II Anesthesia Record Part II Discharge Time: 13:20 Destination: Surgical Day Care (OP Surgery) PACU nurse assessment reviewed?: Yes Patient Condition:: Good Anesthesia Complications:: None Swallowing reflex intact?: Yes Airway Patency: Patent Cyanosis?: No Blood Pressure: 124/76 SaO2: 99 Respiratory Rate: 16 Pulse Rate: 71 Temperature: 97.2 F Mental Status: Alert & Oriented Pain level:: 0 Nausea and/or vomitting:: None Intake, IV Amount: 0 Hydration: Adequate
[2024-10-24 14:43] VITALS: BP 124/76; PULSE 71; RESP 16; TEMP 36.2; O2SAT 99
== END 2024-10-23 13:50 | disposition home or self-care (01) ==
PROVIDERS: PCP Internal Medicine Adolescent Medicine; Visit Provider Podiatrist
PROC: (CPT 11055; principal; 2024-10-23 11:30)
DX: E11.621 Type 2 diabetes mellitus with foot ulcer (principal); I96 Gangrene, not elsewhere classified; E11.52 Type 2 diabetes mellitus with diabetic peripheral angiopathy with gangrene; M86.171 Other acute osteomyelitis, right ankle and foot; L03.031 Cellulitis of right toe; L97.514 Non-pressure chronic ulcer of other part of right foot with necrosis of bone; Z88.0 Allergy status to penicillin; Z79.4 Long term (current) use of insulin; Z79.51 Long term (current) use of inhaled steroids; Z79.899 Other long term (current) drug therapy; F17.210 Nicotine dependence, cigarettes, uncomplicated; E11.40 Type 2 diabetes mellitus with diabetic neuropathy, unspecified; L84 Corns and callosities; M20.11 Hallux valgus (acquired), right foot; M20.12 Hallux valgus (acquired), left foot; M20.41 Other hammer toe(s) (acquired), right foot; M20.42 Other hammer toe(s) (acquired), left foot; M77.31 Calcaneal spur, right foot; M77.32 Calcaneal spur, left foot
CPT/HCPCS: 11055; 11720; 28820; 73630; 80053; 82962; 83036; 85025; 85651; 86140; 88304; C9144; J1100; J1580; J1956; J2405; J3010; J3370; J7120